=== PATIENT | male | born 1980 ===

== ENCOUNTER 2020-09-02 19:05 | Inpatient (IN) | payer OTHER ==
--- NOTE | 2020-09-02 20:24 | Emergency Department Report ---
Blank Doc - Documentation Documentation: 39-year-old male that presents with abdominal pain with diarrhea and stated has bright red blood in stool x 2 weeks. 1- This initial assessment/diagnostic orders/clinical plan/ treatment(s) is/are subject to change based on pt's health status, clinical progression and re-asses sment by fellow clinical providers in the ED. Further treatment and workup at subsequent clinical provers discretion. Patient/guardians urged not to elope from ED as their condition may be serious if not clinically assessed and managed. 2-labs 3-UA
[2020-09-02 20:47] LABS: Basophils % (Auto) 0.5 % (0.0-1.8); Eosinophils # (Auto) 0.1 K/mm3 (0.0-0.4); Eosinophils % (Auto) 0.6 % (0.0-4.3); Hematocrit 43.1 % (35.5-45.6); Hemoglobin 14.7 gm/dl (11.8-15.2); Lymphocytes # (Auto) 1.5 K/mm3 (1.2-5.4); Mean Corpuscular HGB Conc 34 % (32-34); Mean Corpuscular Volume 96 fl (84-94); Monocytes # (Auto) 1.2 K/mm3 (0.0-0.8); Monocytes % (Auto) 14.6 % (0.0-7.3); Platelet Count 359 K/mm3 (140-440)
[2020-09-02 21:11] LABS: Alanine Aminotransferase 14 units/L (7-56); Albumin 4.5 g/dL (3.9-5); BUN/Creatinine Ratio 14; Blood Urea Nitrogen 11 mg/dL (9-20); Calcium 8.9 mg/dL (8.4-10.2); Hemolysis Index 9
--- NOTE | 2020-09-03 00:28 | Emergency Department Report ---
ED Abdominal Pain HPI - General Chief Complaint: Abdominal Pain Stated Complaint: DIARRHEA Time Seen by Provider: 09/02/20 20:21 Source: patient Mode of arrival: Ambulatory Limitations: No Limitations - History of Present Illness Initial Comments: Patient is a 39-year-old male appearance emergency room with complaints of lower abdominal pain and diarrhea and blood in his diarrhea. Patient states this started 2 weeks ago. Patient states that his symptoms are worsening. Patient states approximately 6 days ago he was seen at an urgent care and given Lomotil, Pepcid, sucralfate nothing has helped his symptoms. Patient states his pain is worsened. Patient states his pain is a 10 out of 10. Patient states that the blood in his stool is a large amount of bright red blood. Patient denies melena. Patient denies fever and chills. Patient denies recent travel. Patient denies recent international travel. Patient denies exposure to the novel coronavirus. Patient denies sick contacts. Patient denies fever and chills. Patient denies cough. Patient denies loss of smell.. Patient denies coming in contact with anybody with symptoms of the novel coronavirus. Complaint: abdominal pain -: Sudden Location: LLQ, RLQ Radiation: none Migration to: no migration Severity: severe Severity scale (0 -10): 10 Quality: stabbing Consistency: constant Improves With: rest Worsens With: movement Associated Symptoms: diarrhea, hematochezia. denies: nausea, vomiting, fever, chills, constipation, dysuria, hematemesis, melena, hematuria, anorexia - Related Data Allergies Allergy/AdvReac Type Severity Reaction Status Date / Time No Known Allergies Allergy Verified 09/03/20 02:19 ED Review of Systems ROS: Stated complaint: DIARRHEA Other details as noted in HPI Constitutional: denies: chills, fever Eyes: denies: eye pain, eye discharge, vision change ENT: denies: ear pain, throat pain Respiratory: denies: cough, shortness of breath, wheezing Cardiovascular: denies: chest pain, palpitations Endocrine: no symptoms reported Gastrointestinal: abdominal pain, diarrhea, hematochezia. denies: nausea, vomiting, constipation, hematemesis, melena Genitourinary: denies: urgency, dysuria Musculoskeletal: denies: back pain, joint swelling, arthralgia Skin: denies: rash, lesions Neurological: denies: headache, weakness, paresthesias Psychiatric: denies: anxiety, depression Hematological/Lymphatic: denies: easy bleeding, easy bruising ED Past Medical Hx - Past Medical History Previous Medical History?: No - Surgical History Past Surgical History?: No - Family History Family history: no significant - Social History Smoking Status: Never Smoker Substance Use Type: None ED Physical Exam - General Limitations: No Limitations General appearance: alert, in no apparent distress - Head Head exam: Present: atraumatic, normocephalic - Eye Eye exam: Present: normal appearance - ENT ENT exam: Present: mucous membranes moist - Neck Neck exam: Present: normal inspection - Respiratory Respiratory exam: Present: normal lung sounds bilaterally. Absent: respiratory distress - Cardiovascular Cardiovascular Exam: Present: regular rate, normal rhythm. Absent: systolic murmur, diastolic murmur, rubs, gallop - GI/Abdominal GI/Abdominal exam: Present: soft, tenderness (Bilateral lower quadrant tenderness), normal bowel sounds - Rectal Rectal exam: Present: normal inspection, normal rectal tone, heme (+) stool, bloody stool. Absent: black stool - Extremities Exam Extremities exam: Present: normal inspection - Back Exam Back exam: Present: normal inspection - Neurological Exam Neurological exam: Present: alert, oriented X3 - Psychiatric Psychiatric exam: Present: normal affect, normal mood - Skin Skin exam: Present: warm, dry, intact, normal color. Absent: rash ED Course Vital Signs 09/02/20 09/03/20 19:35 02:19 Temperature 98.4 F 97.7 F Pulse Rate 75 75 Respiratory 18 18 Rate Blood Pressure 127/84 Blood Pressure 126/67 [Left] O2 Sat by Pulse 94 99 Oximetry - Reevaluation(s) Reevaluation #1: I discussed all results with patient. I discussed plan of care with patient. Patient agrees with plan of care and admission. Patient to be admitted to the hospitalist service. 09/03/20 01:48 - Consultations Consultation #1: Gastroenterology consulted. 09/03/20 01:47 Consultation #2: General surgery paged 09/03/20 01:51 I discussed case with Dr. Beckham, general surgery. Dr. Beckham wants the patient be admitted and she will see the patient in the morning. 09/03/20 02:07 Consultation #3: Hospitalist consulted for admission. Hospitalist to admit patient. 09/03/20 01:51 ED Medical Decision Making - Lab Data Result diagrams: 09/02/20 20:26 09/02/20 20:26 - Radiology Data Radiology results: report reviewed CT ABDOMEN AND PELVIS WITH CONTRAST INDICATION: Pt states lower abdominal pain with bloody diarrhea CONTRAST: 100 cc Omnipaque 300 IV COMPARISON: None available. All CT scans at this location are performed using CT dose reduction for ALARA by means of automated exposure control. FINDINGS: Lung bases are clear. No pneumoperitoneum is seen. No free fluid is noted. Gallbladder and bile ducts appear within normal limits. No urinary obstructive changes are seen. Left renal cyst is noted. No other masses are seen. No lymphadenopathy is noted. No evidence of bowel obstruction is seen. Appendix measures 6 mm at the upper end of the normal range without surrounding inflammation. The colon from the cecum through at least the descending colon shows mild wall edema of concern for colitis. This is most prominent in the right colon. I do not see significant surrounding inflammation however. No obvious complication is seen. There may be mild rectosigmoid wall thickening as well. IMPRESSION: Pancolitis without obvious complication - Medical Decision Making Patient is a 39-year-old male that presents emergency room complaints of lower abdominal pain and rectal bleeding. Patient also complained of diarrhea. Patient for 2 weeks. Patient was seen in urgent care and no improvement with treatment. Patient had labs done which were essentially unremarkable. Patient had a guaiac done which was positive for bright red blood and was Hemoccult positive. CT scan was done which shows pancolitis. The inflammation is close to the appendix but the appendix is normal. Due to the appendiceal findings on CT scan, general surgery was consulted. Due to the colitis, gastroenterology was consulted. Patient given IV antibiotics and IV fluids. Patient admitted to the hospital service for further evaluation treatment. - Differential Diagnosis Colitis,gastroenteritis, diverticulitis, bright red blood per rectum Critical Care Time: Yes Critical care time in (mins) excluding proc time.: 35 Critical care attestation.: If time is entered above; I have spent that time in minutes in the direct care of this critically ill patient, excluding procedure time. Critical Care Time: 35 minutes ED Disposition Clinical Impression: Colitis, BRBPR (bright red blood per rectum) Diarrhea Qualifiers: Diarrhea type: unspecified type Qualified Code(s): R19.7 - Diarrhea, unspecified Abdominal pain Qualifiers: Abdominal location: lower abdomen, unspecified Qualified Code(s): R10.30 - Lower abdominal pain, unspecified Disposition: 09 OP ADMIT IP TO THIS HOSP Is pt being admited?: Yes Does the pt Need Aspirin: No Condition: Critical Time of Disposition: 01:50
--- NOTE | 2020-09-03 01:36 | Cat Scan Report ---
CT ABDOMEN AND PELVIS WITH CONTRAST INDICATION: Pt states lower abdominal pain with bloody diarrhea CONTRAST: 100 cc Omnipaque 300 IV COMPARISON: None available. All CT scans at this location are performed using CT dose reduction for ALARA by means of automated e xposure control. FINDINGS: Lung bases are clear. No pneumoperitoneum is seen. No free fluid is noted. Gallbladder and bile ducts appear within normal limits. No urinary obstructive changes are seen. Left renal cyst is n oted. No other masses are seen. No lymphadenopathy is noted. No evidence of bowel obstruction is seen. Appendix measures 6 mm at the upper end of the normal range without surrounding inflammation. The colon from the cecum through at least the descending colon misbah ws mild wall edema of concern for colitis. This is most prominent in the right colon. I do not see si gnificant surrounding inflammation however. No obvious complication is seen. There may be mild rectos igmoid wall thickening as well. IMPRESSION: Pancolitis without obvious complication Signer Name: Waqar Pierre MD Signed: 09/03/2020 1:32 AM Workstation Name: [id number]
[2020-09-03] MEDS ORDERED: PIPERACIL/TAZOBACTA 4.5/NS 100 4.5 GM/100 ML VIAL IV ONE (01:48)
[2020-09-03] MEDS ORDERED: SODIUM CHLORIDE 0.9% 1000 ML 1,000 ML IV ONE ×2 (01:49)
--- NOTE | 2020-09-03 02:20 | History and Physical Report ---
History of Present Illness Date of examination: 09/03/20 Date of admission: 09/03/20 Chief complaint: Bloody diarrhea Abdominal cramp/pain History of present illness: Patient is a 39-year-old male appearance emergency room with complaints of lower abdominal pain and diarrhea and blood in his diarrhea. Patient states this started 2 weeks ago. Patient states that his symptoms are worsening. Patient states approximately 6 days ago he was seen at an urgent care and given Lomotil, Pepcid, sucralfate nothing has helped his symptoms. Patient states his pain is worsened. Patient states his pain is a 10 out of 10. Patient states that the blood in his stool is a large amount of bright red blood. Patient denies melena. Patient denies fever and chills. Patient is seen in ED at bedside. He reports abdominal pain of 7/10. He said his pain is ongoing for about 2 weeks now He reports a bloody loose stool. He said he wants to the clinic and he was given a pepcid and Carafate without any help. ED work-up shows WBC of 8.4, hemoglobin of 14.7, sodium 140 potassium is 3.8, creatinine 0.8, glucose serum 94 CT of the abdomen done and it showed that the colon from the cecum through at least the descending colon shows mild wall edema of concern for colitis. This is most prominent in the right colon. I do not see significant surrounding in flammation however. No obvious complication is seen. There may be mild rectosigmoid wall thickening as well. legal support manager and general surgeon consulted. Patient is started on Proton ix drip. Patient denies alcohol use, admits same tobacco use and marijuana use sometimes. Patient denies chest pain, shortness of breath, nause and vomiting. Past History Past Medical History: No medical history Past Surgical History: No surgical history Social history: lives with family, smoking Family history: no significant family history Medications and Allergies Allergies Allergy/AdvReac Type Severity Reaction Status Date / Time No Known Allergies Allergy Verified 09/03/20 02:19 Active Meds: Active Medications Piperacillin Sod/Tazobactam Sod (Zosyn/Ns 4.5gm/100ml) 4.5 gm in 100 mls @ 200 mls/hr IV ONCE ONE; Protocol Stop: 09/03/20 02:17 Sodium Chloride (Nacl 0.9% 1000 Ml) 1,000 mls @ 999 mls/hr IV BOLUS ONE Stop: 09/03/20 02:49 Sodium Chloride (Nacl 0.9% 1000 Ml) 1,000 mls @ 250 mls/hr IV ONCE ONE Stop: 09/03/20 05:48 Pantoprazole Sodium 80 mg/ (Sodium Chloride) 100 mls @ 10 mls/hr IV DAILY SHWETHA Ondansetron HCl (Ondansetron 4 Mg/2 Ml Inj) 4 mg IV Q6HR PRN PRN Reason: Indigestion Review of Systems Constitutional: other (abdominal pain) Ears, nose, mouth and throat: no epistaxis Cardiovascular: no rapid/irregular heart beat Respiratory: no cough Gastrointestinal: abdominal pain, change in bowel habits, melena, heartburn, indigestion Genitourinary Male: no dysuria Musculoskeletal: no neck stiffness Integumentary: no rash, no pruritis Neurological: no head injury Endocrine: no polydipsia Hematologic/Lymphatic: no easy bruising, no easy bleeding Allergic/Immunologic: no urticaria, no allergic rhinitis Exam - Constitutional Vitals: Temp Pulse Resp BP Pulse Ox 98.4 F 75 18 127/84 94 09/02/20 19:35 09/02/20 19:35 09/02/20 19:35 09/02/20 19:35 09/02/20 19:35 General appearance: Present: mild distress - EENT Eyes: Present: PERRL ENT: hearing intact, clear oral mucosa - Neck Neck: Present: supple, normal ROM - Respiratory Respiratory effort: normal Respiratory: bilateral: CTA - Cardiovascular Heart rate: 75 Heart Sounds: Present: S1 & S2. Absent: rub, click - Extremities Extremities: pulses symmetrical, No edema Peripheral Pulses: within normal limits - Abdominal General gastrointestinal: Present: soft, tender, normal bowel sounds Male genitourinary: Present: normal - Integumentary Integumentary: Present: clear, warm, dry - Musculoskeletal Musculoskeletal: gait normal, strength equal bilaterally - Psychiatric Psychiatric: appropriate mood/affect, intact judgment & insight, memory intact, cooperative - Neurologic Neurologic: CNII-XII intact, moves all extremities - Allied Health Allied health notes reviewed: nursing Results - Labs CBC & Chem 7: 09/02/20 20:26 09/02/20 20:26 Labs: Abnormal lab results 09/02/20 Range/Units 20:26 MCV 96 H (84-94) fl MCH 33 H (28-32) pg RDW 13.0 L (13.2-15.2) % [place] % (Auto) 14.6 H (0.0-7.3) % [place] # (Auto) 1.2 H (0.0-0.8) K/mm3 Assessment and Plan - Patient Problems (1) Colitis Current Visit: Yes Status: Acute Plan to address problem: Patient came with complaint of abdominal pain CT of the abdomen is done-patient has colitis GI is consulted follow-up with recommendation Empiric antibiotic with Zosyn (2) Abdominal pain Current Visit: Yes Status: Acute Qualifiers: Abdominal location: lower abdomen, unspecified Qualified Code(s): R10.30 - Lower abdominal pain, unspecified Plan to address problem: Abdominal pain secondary to colitis Pain management as needed Protonix drip (3) BRBPR (bright red blood per rectum) Current Visit: Yes Status: Acute Plan to address problem: Continue Protonix drip GI is consulted for possible EGD/colonoscopy Monitor hemoglobin, patient hemoglobin in ED is 14.7 (4) Diarrhea Current Visit: Yes Status: Acute Qualifiers: Diarrhea type: unspecified type Qualified Code(s): R19.7 - Diarrhea, unspecified Plan to address problem: Antidiarrhea medication as needed Keep patient n.p.o. 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 (6) DVT prophylaxis Current Visit: Yes Status: Acute Plan to address problem: SCD
[2020-09-03 02:58] LABS: Bilirubin,Urine NEG (Negative); Blood,Urine SM (Negative); Color,Urine Straw (Yellow); Protein,Urine <15 mg/dL mg/dL (Negative); RBC,Urine < 1.0 /HPF (0.0-6.0); Urobilinogen,Urine < 2.0 mg/dL (<2.0); WBC,Urine < 1.0 /HPF (0.0-6.0)
[2020-09-03] MEDS ORDERED: oxyCODONE /ACETAMINOPHEN 5-325MG TAB PO PRN (03:53)
[2020-09-03] MEDS: MORPHINE 2 MG/1 ML INJ IV PRN (04:10)
[2020-09-03] MEDS: D5W/0.9% NACL 1,000 ML IV SCH ×2 (04:13→15:37)
--- NOTE | 2020-09-03 10:23 | Progress Note ---
Assessment and Plan Assessment and plan: Colitis Patient came with complaint of abdominal pain CT of the abdomen is done-patient has colitis GI is consulted follow-up with recommendation Empiric antibiotic with Zosyn Levaquin added to regimen Check stool culture and stool WBCs Abdominal pain Abdominal pain secondary to colitis Pain management as needed Protonix drip BRBPR (bright red blood per rectum) Continue Protonix drip GI is consulted for possible EGD/colonoscopy Monitor hemoglobin, patient hemoglobin in ED is 14.7 Diarrhea Antidiarrhea medication as needed Keep patient n.p.o. 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 DVT prophylaxis SCD History Interval history: Patient reports 4 diarrheal stools this morning. Hospitalist Physical - Constitutional Vitals: Temp Pulse Resp BP Pulse Ox 97.6 F 78 18 139/83 99 09/03/20 07:42 09/03/20 07:42 09/03/20 07:42 09/03/20 07:42 09/03/20 07:42 General appearance: Present: mild distress - EENT Eyes: Present: PERRL, EOM intact ENT: hearing intact, clear oral mucosa, dentition normal - Neck Neck: Present: supple, normal ROM - Respiratory Respiratory effort: normal Respiratory: bilateral: CTA - Cardiovascular Rhythm: regular Heart Sounds: Present: S1 & S2. Absent: gallop, rub - Extremities Extremities: no ischemia, No edema, Full ROM - Abdominal General gastrointestinal: soft, non-tender, non-distended, normal bowel sounds - Integumentary Integumentary: Present: clear, warm, dry - Neurologic Neurologic: CNII-XII intact, moves all extremities Results - Labs CBC & Chem 7: 09/02/20 20:26 09/02/20 20:26 Labs: Laboratory Last Values WBC 8.4 K/mm3 (4.5-11.0) 09/02/20 20: RBC 4.50 M/mm3 (3.65-5.03) 09/02/20 20:26 Hgb 14.7 gm/dl (11.8-15.2) 09/02/20 20: Hct 43.1 % (35.5-45.6) 09/02/20 20: MCV 96 fl (84-94) H 09/02/20 20: MCH 33 pg (28-32) H 09/02/20 20: MCHC 34 % (32-34) 09/02/20 20: RDW 13.0 % (13.2-15.2) L 09/02/20 20: Plt Count 359 K/mm3 (140-440) 09/02/20 20: Lymph % (Auto) 18.0 % (13.4-35.0) 09/02/20 20: [place] % (Auto) 14.6 % (0.0-7.3) H 09/02/20 20: Eos % (Auto) 0.6 % (0.0-4.3) 09/02/20: Baso % (Auto) 0.5 % (0.0-1.8) 09/02/20 20: Lymph # (Auto) 1.5 K/mm3 (1.2-5.4) 09/02/20 20: [place] # (Auto) 1.2 K/mm3 (0.0-0.8) H 09/02/20 20: Eos # (Auto) 0.1 K/mm3 (0.0-0.4) 09/02/20: Baso # (Auto) 0.0 K/mm3 (0.0-0.1) 09/02/20 20: Seg Neutrophils % 66.3 % (40.0-70.0) 09/02/20 20: Seg Neutrophils # 5.6 K/mm3 (1.8-7.7) 09/02/20 20: Sodium 140 mmol/L (137-145) 09/02/20 20: Potassium 3.8 mmol/L (3.6-5.0) 09/02/20: Chloride 102.7 mmol/L (98-107) 09/02/20 20: Carbon Dioxide 26 mmol/L (22-30) 09/02/20: Anion Gap 15 mmol/L 09/02/20 20: BUN 11 mg/dL (9-20) 09/02/20 20: Creatinine 0.8 mg/dL (0.8-1.3) 09/02/20 20: Estimated GFR > 60 ml/min 01/20/21 20:26 BUN/Creatinine Ratio 14 % 09/02/20 20:26 Glucose 94 mg/dL (75-100) 09/02/20 20: Calcium 8.9 mg/dL (8.4-10.2) 09/02/20 20: Total Bilirubin 0.30 mg/dL (0.1-1.2) 09/02/20 20:26 AST 17 units/L (5-40) 09/02/20 20: ALT 14 units/L (7-56) 09/02/20 20: Alkaline Phosphatase 62 units/L (35-129) 09/02/20 20: Total Protein 6.8 g/dL (6.3-8.2) 09/02/20 20: Albumin 4.5 g/dL (3.9-5) 09/02/20 20: Albumin/Globulin Ratio 2.0 % 09/02/20 20: Lipase 17 units/L (13-60) 09/02/20 20:26 Urine Color Straw (Yellow) 09/03/20 02:27 Urine Turbidity Clear (Clear) 09/03/20 02:27 Urine pH 6.0 (5.0-7.0) 09/03/20 02:27 Ur Specific [place] 1.003 (1.003-1.030) 09/03/20 02:27 Urine Protein <15 mg/dl mg/dL (Negative) 09/03/20 02:27 Urine Glucose (UA) Neg mg/dL (Negative) 09/03/20 02:27 Urine Ketones Neg mg/dL (Negative) 09/03/20 02:27 Urine Blood Sm (Negative) 09/03/20 02:27 Urine Nitrite Neg (Negative) 09/03/20 02:27 Urine Bilirubin Neg (Negative) 09/03/20 02:27 Urine Urobilinogen < 2.0 mg/dL (<2.0) 09/03/20 02:27 Ur Leukocyte Esterase Neg (Negative) 09/03/20 02:27 Urine WBC (Auto) < 1.0 /HPF (0.0-6.0) 09/03/20 02:27 Urine RBC (Auto) < 1.0 /HPF (0.0-6.0) 09/03/20 02:27 Microbiology: Microbiology 09/02/20 20:22 Stool Stool Occult Blood (GARRY) - Final Breaux/IV: Voiding Method Toilet IV Catheter Type [Right Peripheral IV Antecubital] Active Medications - Current Medications Current Medications: Generic Name Dose Route Start Last Admin Trade Name Freq PRN Reason Stop Dose Admin Pantoprazole Sodium 80 mg/ 100 mls @ 10 mls/hr 09/03/20 03:00 Sodium Chloride IV DIRECT SHWETHA 8 MG/HR Dextrose/Sodium Chloride 1,000 mls @ 75 mls/hr 09/03/20 03:00 09/03/20 04:13 D5ns IV 75 mls/hr DIRECT SHWETHA Administration Piperacillin Sod/Tazobactam Sod 4.5 gm in 100 mls @ 200 mls/hr 09/03/20 10:00 Zosyn/Ns 4.5gm/100ml IV Q8H SHWETHA Protocol Levofloxacin/Dextrose 500 mg in 100 mls @ 100 mls/hr 09/03/20 11:00 Levaquin 500mg/100ml IV Q24H SHWETHA Protocol Morphine Sulfate 2 mg 09/03/20 03:51 09/03/20 04:10 Morphine 2 Mg/1 Ml Inj IV 2 mg Q6H PRN Administration Pain, Moderate (4-6) Ondansetron HCl 4 mg 09/03/20 02:11 Ondansetron 4 Mg/2 Ml Inj IV Q6HR PRN Indigestion Oxycodone/Acetaminophen 1 tab 09/03/20 03:53 Oxycodone /Acetaminophen 5-325mg Tab PO Q8H PRN Pain, Moderate (4-6)
--- NOTE | 2020-09-03 11:01 | Consultation ---
History of Present Illness Consult date: 09/03/20 Reason for consult: abdominal pain - History of present illness History of present illness: 39 year old male presented to ED with a two week hx of worsening abdominal pain with bloody stools. He says he had a similar episode several years ago that was not as severe, and resolved on its own. He also has a hx of GI problems for [facility] he has seen at least two seasoning mixer who have done two EGDs in the past. He has never had a colonoscopy and denies any knowledge of familial history of irritable bowel disease. He had a CT scan that showed crespo colitis, as well as an appendix that was inflamed at borderline at 6mm. Past History Past Medical History: No medical history Past Surgical History: No surgical history Social history: lives with family, smoking Family history: no significant family history Medications and Allergies Allergies Allergy/AdvReac Type Severity Reaction Status Date / Time No Known Allergies Allergy Verified 09/03/20 02:19 Active Meds: Active Medications Pantoprazole Sodium 80 mg/ (Sodium Chloride) 100 mls @ 10 mls/hr IV DIRECT SHWETHA Dextrose/Sodium Chloride (D5ns) 1,000 mls @ 75 mls/hr IV DIRECT SHWETHA Last Admin: 09/03/20 04:13 Dose: 75 mls/hr Documented by: Piperacillin Sod/Tazobactam Sod (Zosyn/Ns 4.5gm/100ml) 4.5 gm in 100 mls @ 200 mls/hr IV Q8H SHWETHA; Protocol Levofloxacin/Dextrose (Levaquin 500mg/100ml) 500 mg in 100 mls @ 100 mls/hr IV Q24H SHWETHA; Protocol Morphine Sulfate (Morphine 2 Mg/1 Ml Inj) 2 mg IV Q6H PRN PRN Reason: Pain, Moderate (4-6) Last Admin: 09/03/20 04:10 Dose: 2 mg Documented by: Ondansetron HCl (Ondansetron 4 Mg/2 Ml Inj) 4 mg IV Q6HR PRN PRN Reason: Indigestion Oxycodone/Acetaminophen (Oxycodone /Acetaminophen 5-325mg Tab) 1 tab PO Q8H PRN PRN Reason: Pain, Moderate (4-6) Review of Systems - Constitutional no weight loss, no weight gain, no weakness - Cardiovascular no chest pain - Respiratory no cough, no shortness of breath - Gastrointestinal abdominal pain, diarrhea, melena - Genitourinary no dysuria Exam Vital Signs Temp Pulse Resp BP Pulse Ox 98.4 F 75 18 127/84 94 09/02/20 19:35 09/02/20 19:35 09/02/20 19:35 09/02/20 19:35 09/02/20 19:35 - General physical appearance Positive: well developed, well nourished, no distress, no pain - Respiratory Positive: normal expansion, normal respiratory effort - Cardiovascular Heart Sounds: Present: S1 & S2 - Extremities Extremities: no ischemia - Abdomen Abdomen: Present: soft, other (tender to deep palpation). Absent: distended, rebound, guarding, rigid, surgical scars Results - Labs 09/02/20 20:26 09/02/20 20:26 Abnormal lab results 09/02/20 Range/Units 20:26 MCV 96 H (84-94) fl MCH 33 H (28-32) pg RDW 13.0 L (13.2-15.2) % [place] % (Auto) 14.6 H (0.0-7.3) % [place] # (Auto) 1.2 H (0.0-0.8) K/mm3 Diabetes panel 09/02/20 Range/Units 20:26 Sodium 140 (137-145) mmol/L Potassium 3.8 (3.6-5.0) mmol/L Chloride 102.7 (98-107) mmol/L Carbon Dioxide 26 (22-30) mmol/L BUN 11 (9-20) mg/dL Creatinine 0.8 (0.8-1.3) mg/dL Glucose 94 (75-100) mg/dL Calcium 8.9 (8.4-10.2) mg/dL AST 17 (5-40) units/L ALT 14 (7-56) units/L Alkaline Phosphatase 62 (35-129) units/L Total Protein 6.8 (6.3-8.2) g/dL Albumin 4.5 (3.9-5) g/dL Calcium panel 09/02/20 Range/Units 20:26 Calcium 8.9 (8.4-10.2) mg/dL Albumin 4.5 (3.9-5) g/dL Pituitary panel 09/02/20 Range/Units 20:26 Sodium 140 (137-145) mmol/L Potassium 3.8 (3.6-5.0) mmol/L Chloride 102.7 (98-107) mmol/L Carbon Dioxide 26 (22-30) mmol/L BUN 11 (9-20) mg/dL Creatinine 0.8 (0.8-1.3) mg/dL Glucose 94 (75-100) mg/dL Calcium 8.9 (8.4-10.2) mg/dL Adrenal panel 09/02/20 Range/Units 20:26 Sodium 140 (137-145) mmol/L Potassium 3.8 (3.6-5.0) mmol/L Chloride 102.7 (98-107) mmol/L Carbon Dioxide 26 (22-30) mmol/L BUN 11 (9-20) mg/dL Creatinine 0.8 (0.8-1.3) mg/dL Glucose 94 (75-100) mg/dL Calcium 8.9 (8.4-10.2) mg/dL Total Bilirubin 0.30 (0.1-1.2) mg/dL AST 17 (5-40) units/L ALT 14 (7-56) units/L Alkaline Phosphatase 62 (35-129) units/L Total Protein 6.8 (6.3-8.2) g/dL Albumin 4.5 (3.9-5) g/dL - Imaging CT scan - abdomen: report reviewed CT scan - chest: image reviewed CT scan - pelvis: report reviewed, image reviewed Assessment and Plan 39 year old male with pancolitis. Afebrile, stable, no leukocytosis. Appendiceal inflammation likely associated with colitis and no surgical intervention indicated at this time. Agree with GI evaluation, especially given his previous hx of prior episodes and other GI complaints and work ups. Pt may have IBD that may benefit from medical management and follow up. Continue abx.
[2020-09-03] MEDS: PIPERACIL/TAZOBACTA 4.5/NS 100 4.5 GM/100 ML VIAL IV SCH ×2 (11:08→18:25)
[2020-09-03] MEDS: PANTOPRAZOLE 80 MG in SODIUM CHLORIDE 0.9% 100 ML IV SCH ×2 (11:08→19:20)
--- NOTE | 2020-09-03 13:10 | Event Note ---
Date: 09/03/20 - full consult dictated - pt now with bloody diarrhea w/ no recent prior symptoms - infectious vs IBD vs other - IBD serologies, CRP - await stool labs - consider steroids based on progress and with stool results - will follow
--- NOTE | 2020-09-03 14:30 | Consultation ---
REFERRING PHYSICIAN: Gurmeet Pierre MD INDICATION: 1. Abdominal pain. 2. Colitis. HISTORY OF PRESENT ILLNESS: The patient is a 39-year-old male with no significant past medical history being seen for abdominal pain and bloody diarrhea. The patient reports an episode of 8 years ago, he had some bloody diarrhea, which resolved after 4-5 days. The patient reports he had been eating a lot over the holiday weekend with plans to cut back. The patient reports approximately 10 days of bloody bowel movements with lower abdominal pain and cramping. The patient reports of 10 bloody bowel movements per day. He reports no nausea, vomiting or hematemesis. The patient reports prior to this, he was feeling fine. Denies any weight loss. Denies any other specific complaints. The patient subsequently came to Emergency Room where a CT scan showed pancolitis. He was admitted and GI consulted. No other specific complaints. PAST MEDICAL HISTORY: Negative. MEDICATIONS: Reviewed and updated in the chart. ALLERGIES: No known drug allergies. SOCIAL HISTORY: Denies alcohol, tobacco or IV drug abuse. FAMILY HISTORY: Negative for colon cancer. REVIEW OF SYSTEMS: GENERAL: Reports some weakness. HEENT: No visual complaints or tinnitus. PULMONARY: No shortness of breath. No cough. No chest pain. GASTROINTESTINAL: Reports abdominal pain and bloody diarrhea. All points of 13-point review of systems otherwise negative. PHYSICAL EXAMINATION: VITAL SIGNS: Temperature of 97.6, pulse 78, respirations 18, blood pressure 139/83. GENERAL: Fairly nourished male in no acute distress. HEENT: Pupils equal, round and reactive. PULMONARY: Clear to auscultation bilaterally. CARDIOVASCULAR: Regular rate and rhythm. Normal S1 and S2. ABDOMEN: Positive bowel sounds, soft. SKIN: No obvious rashes. LABORATORY DATA: Pertinent for white count of 8.4, hemoglobin and hematocrit of 14.7 and 43.1, platelet count of 359. Chem-[address] scan showed pancolitis, infection versus inflammatory bowel disease. ASSESSMENT AND PLAN: A 39-year-old male who reports no recent complaints of bloody diarrhea or lower abdominal pain. He reports he has been eating a lot over the holidays and now with approximately 10-12 days of bloody bowel movements approximately 10 per day. He reports no fevers or chills. He does report some abdominal pain. CT scan showed pancolitis. The patient again reports no recent symptoms, which is not the usual course of inflammatory bowel disease, but still possible. Differential diagnosis including infectious versus inflammatory bowel disease versus other. PLAN: 1. Review CT scan. 2. Agree with antibiotics with Levaquin and Flagyl. 3. Stool cultures. 4. We will check IBD serologies as well as follow CRP. 5. If negative stool sample and no signs of improvement, we will consider steroids at that time. 6. No plans for colonoscopy at this time. 7. When pain improve, we will start clear liquid diet. 8. We will follow. JOB# [id number] CAB/NTS
[2020-09-03] MEDS ORDERED: ACETAMINOPHEN 325 MG/10.15 ML ORAL LIQD UNIT DOSE FEEDTUBE PRN (15:42)
[2020-09-03] MEDS: ONDANSETRON 4 MG/2 ML INJ IV PRN (22:50)
[2020-09-04] MEDS: PIPERACIL/TAZOBACTA 4.5/NS 100 4.5 GM/100 ML VIAL IV SCH ×2 (03:57→10:27)
[2020-09-04 06:23] LABS: Basophils # (Auto) 0.1 K/mm3 (0.0-0.1); Basophils % (Auto) 0.7 % (0.0-1.8); Eosinophils # (Auto) 0.1 K/mm3 (0.0-0.4); Eosinophils % (Auto) 1.3 % (0.0-4.3); Hematocrit 42.9 % (35.5-45.6); Hemoglobin 14.8 gm/dl (11.8-15.2); Lymphocytes # (Auto) 1.1 K/mm3 (1.2-5.4); Lymphocytes % (Auto) 13.1 % (13.4-35.0); Mean Corpuscular HGB Conc 34 % (32-34); Mean Corpuscular Volume 95 fl (84-94); Monocytes # (Auto) 1.1 K/mm3 (0.0-0.8); Monocytes % (Auto) 13.1 % (0.0-7.3); Platelet Count 366 K/mm3 (140-440); Red Blood Count 4.52 M/mm3 (3.65-5.03); Red Cell Distribution Width 13.1 % (13.2-15.2)
[2020-09-04] MEDS: D5W/0.9% NACL 1,000 ML IV SCH (06:28)
[2020-09-04] MEDS: PANTOPRAZOLE 80 MG in SODIUM CHLORIDE 0.9% 100 ML IV SCH (06:28)
[2020-09-04] MEDS: MORPHINE 2 MG/1 ML INJ IV PRN ×2 (06:29→12:25)
[2020-09-04] MEDS: ONDANSETRON 4 MG/2 ML INJ IV PRN (06:30)
[2020-09-04 06:35] LABS: Alanine Aminotransferase 12 units/L (7-56); BUN/Creatinine Ratio 9; Blood Urea Nitrogen 8 mg/dL (9-20); Calcium 8.7 mg/dL (8.4-10.2); Hemolysis Index 4
--- NOTE | 2020-09-04 13:09 | Progress Note ---
Assessment and Plan Assessment and plan: Colitis Patient came with complaint of abdominal pain CT of the abdomen is done-patient has colitis GI is consulted follow-up with recommendation Empiric antibiotic with Zosyn Levaquin added to regimen Check stool culture and stool WBCs Abdominal pain Abdominal pain secondary to colitis Pain management as needed Protonix drip BRBPR (bright red blood per rectum) Continue Protonix drip GI is consulted for possible EGD/colonoscopy Monitor hemoglobin, patient hemoglobin in ED is 14.7 Diarrhea Antidiarrhea medication as needed Keep patient n.p.o. 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 DVT prophylaxis SCD 09/04. Await stool studies. Continue IV antibiotics. Await GI plans for possible EGD/colonoscopy. History Interval history: Patient reports 10 diarrheal stools over the past 24 hours Hospitalist Physical - Constitutional Vitals: Temp Pulse Resp BP Pulse Ox 98.0 F 69 20 128/76 97 09/04/20 11:48 09/04/20 11:48 09/04/20 12:25 09/04/20 11:48 09/04/20 11:48 General appearance: Present: no acute distress - EENT Eyes: Present: PERRL, EOM intact ENT: hearing intact, clear oral mucosa, dentition normal - Neck Neck: Present: supple, normal ROM - Respiratory Respiratory effort: normal Respiratory: bilateral: CTA - Cardiovascular Rhythm: regular Heart Sounds: Present: S1 & S2. Absent: gallop, rub - Extremities Extremities: no ischemia, No edema, Full ROM - Abdominal General gastrointestinal: soft, non-tender, non-distended, normal bowel sounds - Integumentary Integumentary: Present: clear, warm, dry - Neurologic Neurologic: CNII-XII intact, moves all extremities Results - Labs CBC & Chem 7: 09/04/20 05:44 09/04/20 05:44 Labs: Laboratory Last Values WBC 8.4 K/mm3 (4.5-11.0) 09/04/20 05:44 RBC 4.52 M/mm3 (3.65-5.03) 09/04/20 05:44 Hgb 14.8 gm/dl (11.8-15.2) 09/04/20 05:44 Hct 42.9 % (35.5-45.6) 09/04/20 05:44 MCV 95 fl (84-94) H 09/04/20 05:44 MCH 33 pg (28-32) H 09/04/20 05:44 MCHC 34 % (32-34) 09/04/20 05:44 RDW 13.1 % (13.2-15.2) L 09/04/20 05:44 Plt Count 366 K/mm3 (140-440) 09/04/20 05:44 Lymph % (Auto) 13.1 % (13.4-35.0) L 09/04/20 05:44 [place] % (Auto) 13.1 % (0.0-7.3) H 09/04/20 05:44 Eos % (Auto) 1.3 % (0.0-4.3) 09/04/20 05:44 Baso % (Auto) 0.7 % (0.0-1.8) 09/04/20 05:44 Lymph # (Auto) 1.1 K/mm3 (1.2-5.4) L 09/04/20 05:44 [place] # (Auto) 1.1 K/mm3 (0.0-0.8) H 09/04/20 05:44 Eos # (Auto) 0.1 K/mm3 (0.0-0.4) 09/04/20 05:44 Baso # (Auto) 0.1 K/mm3 (0.0-0.1) 09/04/20 05:44 Seg Neutrophils % 71.8 % (40.0-70.0) H 09/04/20 05:44 Seg Neutrophils # 6.0 K/mm3 (1.8-7.7) 09/04/20 05:44 Sodium 140 mmol/L (137-145) 09/04/20 05:44 Potassium 3.8 mmol/L (3.6-5.0) 09/04/20 05:44 Chloride 104.0 mmol/L (98-107) 09/04/20 05:44 Carbon Dioxide 29 mmol/L (22-30) 09/04/20 05:44 Anion Gap 11 mmol/L 09/04/20 05:44 BUN 8 mg/dL (9-20) L 09/04/20 05:44 Creatinine 0.9 mg/dL (0.8-1.3) 09/04/20 05:44 Estimated GFR > 60 ml/min 09/04/20 05:44 BUN/Creatinine Ratio 9 % 09/04/20 05:44 Glucose 88 mg/dL (75-100) 09/04/20 05:44 Calcium 8.7 mg/dL (8.4-10.2) 09/04/20 05:44 Total Bilirubin 0.50 mg/dL (0.1-1.2) 09/04/20 05:44 AST 16 units/L (5-40) 09/04/20 05:44 ALT 12 units/L (7-56) 09/04/20 05:44 Alkaline Phosphatase 58 units/L (35-129) 09/04/20 05:44 C-Reactive Protein 1.30 mg/dL (0.00-1.30) 09/04/20 05:44 Total Protein 6.1 g/dL (6.3-8.2) L 09/04/20 05:44 Albumin 4.0 g/dL (3.9-5) 09/04/20 05:44 Albumin/Globulin Ratio 1.9 % 09/04/20 05:44 Lipase 17 units/L (13-60) 09/02/20 20:26 Urine Color Straw (Yellow) 09/03/20 02:27 Urine Turbidity Clear (Clear) 09/03/20 02:27 Urine pH 6.0 (5.0-7.0) 09/03/20 02:27 Ur Specific [place] 1.003 (1.003-1.030) 09/03/20 02:27 Urine Protein <15 mg/dl mg/dL (Negative) 09/03/20 02:27 Urine Glucose (UA) Neg mg/dL (Negative) 09/03/20 02:27 Urine Ketones Neg mg/dL (Negative) 09/03/20 02:27 Urine Blood Sm (Negative) 09/03/20 02:27 Urine Nitrite Neg (Negative) 09/03/20 02:27 Urine Bilirubin Neg (Negative) 09/03/20 02:27 Urine Urobilinogen < 2.0 mg/dL (<2.0) 09/03/20 02:27 Ur Leukocyte Esterase Neg (Negative) 09/03/20 02:27 Urine WBC (Auto) < 1.0 /HPF (0.0-6.0) 09/03/20 02:27 Urine RBC (Auto) < 1.0 /HPF (0.0-6.0) 09/03/20 02:27 Microbiology: Microbiology 09/03/20 10:20 Stool Stool for WBCs - Final Many Polymorphonuclear Cells Seen 09/02/20 20:22 Stool Stool Occult Blood (GARRY) - Final Breaux/IV: Voiding Method Toilet IV Catheter Type [Left Forearm INT / Saline Lock ] IV Catheter Type [Right Peripheral IV Antecubital] Active Medications - Current Medications Current Medications: Generic Name Dose Route Start Last Admin Trade Name Freq PRN Reason Stop Dose Admin Acetaminophen 650 mg 09/03/20 15:42 09/03/20 16:04 Acetaminophen 325 Mg/10.15 Ml Oral Liqd Unit Dose FEEDTUBE 650 mg Q6H PRN Administration Pain, Mild (1-3) Pantoprazole Sodium 80 mg/ 100 mls @ 10 mls/hr 09/03/20 03:00 09/04/20 06:28 Sodium Chloride IV 09/04/20 15:00 8 mg/hr DIRECT SHWETHA 10 mls/hr Administration 8 MG/HR Dextrose/Sodium Chloride 1,000 mls @ 75 mls/hr 09/03/20 03:00 09/04/20 06:28 D5ns IV 75 mls/hr DIRECT SHWETHA Administration Piperacillin Sod/Tazobactam Sod 4.5 gm in 100 mls @ 200 mls/hr 09/03/20 10:00 09/04/20 10:27 Zosyn/Ns 4.5gm/100ml IV 200 mls/hr Q8H SHWETHA Administration Protocol Levofloxacin/Dextrose 500 mg in 100 mls @ 100 mls/hr 09/03/20 12:00 09/03/20 20:12 Levaquin 500mg/100ml IV Infused Q24H SHWETHA Infusion Protocol Morphine Sulfate 2 mg 09/03/20 03:51 09/04/20 12:25 Morphine 2 Mg/1 Ml Inj IV 2 mg Q6H PRN Administration Pain, Moderate (4-6) Ondansetron HCl 4 mg 09/03/20 02:11 09/04/20 06:30 Ondansetron 4 Mg/2 Ml Inj IV 4 mg Q6HR PRN Administration Indigestion Oxycodone/Acetaminophen 1 tab 09/03/20 03:53 Oxycodone /Acetaminophen 5-325mg Tab PO Q8H PRN Pain, Moderate (4-6) Pantoprazole Sodium 40 mg 09/04/20 22:00 Pantoprazole 40 Mg Inj IV BID SHWETHA
--- NOTE | 2020-09-04 16:41 | Gastroenterology Progress Note ---
Assessment and Plan GI: pt presents w/ 1/2 wks bloody diarrhea, ct colitis, IBD vs infectious vs other - labs stable, CRP normal, other IBD serologies pending - stool labs pending - started clear liquid, advanced based on progress - D/c Zosyn, Flagyl started - will add Questran - no plans for colonoscopy at this time, will plan for as outpt when dc - follow loabs - when diarrhea stable, tolerating po ok to dc - will follow Subjective Date of service: 09/04/20 Interval history: reports mild improvement in pain and diarrhea Objective - Constitutional Vitals: Temp Pulse Resp BP Pulse Ox 98.0 F 69 20 128/76 97 09/04/20 11:48 09/04/20 11:48 09/04/20 12:25 09/04/20 11:48 09/04/20 11:48 General appearance: no acute distress - EENT Eyes: PERRL - Respiratory Respiratory: bilateral: CTA - Cardiovascular Rhythm: regular Heart Sounds: Present: S1 & S2 - Gastrointestinal General gastrointestinal: Present: soft, non-tender, non-distended - Labs CBC & Chem 7: 09/04/20 05:44 09/04/20 05:44 Labs: Laboratory Results - last 24 hr 09/04/20 09/04/20 09/04/20 05:44 05:44 05:44 WBC 8.4 RBC 4.52 Hgb 14.8 Hct 42.9 MCV 95 H MCH 33 H MCHC 34 RDW 13.1 L Plt Count 366 Lymph % (Auto) 13.1 L [place] % (Auto) 13.1 H Eos % (Auto) 1.3 Baso % (Auto) 0.7 Lymph # (Auto) 1.1 L [place] # (Auto) 1.1 H Eos # (Auto) 0.1 Baso # (Auto) 0.1 Seg Neutrophils % 71.8 H Seg Neutrophils # 6.0 Sodium 140 Potassium 3.8 Chloride 104.0 Carbon Dioxide 29 Anion Gap 11 BUN 8 L Creatinine 0.9 Estimated GFR > 60 BUN/Creatinine Ratio 9 Glucose 88 Calcium 8.7 Total Bilirubin 0.50 AST 16 ALT 12 Alkaline Phosphatase 58 C-Reactive Protein 1.30 Total Protein 6.1 L Albumin 4.0 Albumin/Globulin Ratio 1.9
[2020-09-04] MEDS: metroNIDAZOLE/NS 500 MG/100 ML 500 MG/100 ML BAG IV SCH (18:00)
[2020-09-04] MEDS: CHOLESTYRAMINE (WITH SUGAR) 4 GM PACKET PO SCH (21:50)
[2020-09-04] MEDS ORDERED: PANTOPRAZOLE 40 MG INJ IV SCH (22:00)
[2020-09-05] MEDS: metroNIDAZOLE/NS 500 MG/100 ML 500 MG/100 ML BAG IV SCH ×3 (02:00→17:13)
[2020-09-05 06:04] LABS: Basophils % (Auto) 0.6 % (0.0-1.8); Eosinophils # (Auto) 0.1 K/mm3 (0.0-0.4); Eosinophils % (Auto) 1.4 % (0.0-4.3); Hematocrit 44.4 % (35.5-45.6); Hemoglobin 15.4 gm/dl (11.8-15.2); Lymphocytes # (Auto) 1.5 K/mm3 (1.2-5.4); Lymphocytes % (Auto) 17.5 % (13.4-35.0); Mean Corpuscular HGB Conc 35 % (32-34); Mean Corpuscular Volume 96 fl (84-94); Monocytes # (Auto) 1.1 K/mm3 (0.0-0.8); Monocytes % (Auto) 13.1 % (0.0-7.3); Platelet Count 403 K/mm3 (140-440); Red Blood Count 4.65 M/mm3 (3.65-5.03); Red Cell Distribution Width 12.8 % (13.2-15.2)
[2020-09-05 06:26] LABS: BUN/Creatinine Ratio 6; Blood Urea Nitrogen 5 mg/dL (9-20); Calcium 8.9 mg/dL (8.4-10.2); Hemolysis Index 15
--- NOTE | 2020-09-05 08:59 | Progress Note ---
Assessment and Plan Assessment and plan: Colitis Patient came with complaint of abdominal pain CT of the abdomen is done-patient has colitis GI is consulted follow-up with recommendation Empiric antibiotic with Zosyn Levaquin added to regimen Check stool culture and stool WBCs Abdominal pain Abdominal pain secondary to colitis Pain management as needed Protonix drip BRBPR (bright red blood per rectum) Continue Protonix drip GI is consulted for possible EGD/colonoscopy Monitor hemoglobin, patient hemoglobin in ED is 14.7 Diarrhea Antidiarrhea medication as needed Keep patient n.p.o. 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 DVT prophylaxis SCD 09/04. Await stool studies. Continue IV antibiotics. Await GI plans for possible EGD/colonoscopy. 09/05. CRP normal. Await stool studies. Continue clear liquid diet and advance as tolerated. Continue Levaquin and Flagyl. GI added Questran. GI with no plans of colonoscopy at this time and will follow up as an outpatient. History Interval history: No new issues overnight Hospitalist Physical - Constitutional Vitals: Temp Pulse Resp BP Pulse Ox 98.6 F 65 18 113/74 98 09/05/20 05:20 09/05/20 05:20 09/05/20 05:20 09/05/20 05:20 09/05/20 05:20 General appearance: Present: no acute distress - EENT Eyes: Present: PERRL, EOM intact ENT: hearing intact, clear oral mucosa, dentition normal - Neck Neck: Present: supple, normal ROM - Respiratory Respiratory effort: normal Respiratory: bilateral: CTA - Cardiovascular Rhythm: regular Heart Sounds: Present: S1 & S2. Absent: gallop, rub - Extremities Extremities: no ischemia, No edema, Full ROM - Abdominal General gastrointestinal: soft, non-tender, non-distended, normal bowel sounds - Integumentary Integumentary: Present: clear, warm, dry - Neurologic Neurologic: CNII-XII intact, moves all extremities Results - Labs CBC & Chem 7: 09/05/20 05:41 09/05/20 05:41 Labs: Laboratory Last Values WBC 8.5 K/mm3 (4.5-11.0) 09/05/20 05:41 RBC 4.65 M/mm3 (3.65-5.03) 09/05/20 05:41 Hgb 15.4 gm/dl (11.8-15.2) H 09/05/20 05:41 Hct 44.4 % (35.5-45.6) 09/05/20 05:41 MCV 96 fl (84-94) H 09/05/20 05:41 MCH 33 pg (28-32) H 09/05/20 05:41 MCHC 35 % (32-34) H 09/05/20 05:41 RDW 12.8 % (13.2-15.2) L 09/05/20 05:41 Plt Count 403 K/mm3 (140-440) 09/05/20 05:41 Lymph % (Auto) 17.5 % (13.4-35.0) 09/05/20 05:41 [place] % (Auto) 13.1 % (0.0-7.3) H 09/05/20 05:41 Eos % (Auto) 1.4 % (0.0-4.3) 09/05/20 05:41 Baso % (Auto) 0.6 % (0.0-1.8) 09/05/20 05:41 Lymph # (Auto) 1.5 K/mm3 (1.2-5.4) 09/05/20 05:41 [place] # (Auto) 1.1 K/mm3 (0.0-0.8) H 09/05/20 05:41 Eos # (Auto) 0.1 K/mm3 (0.0-0.4) 09/05/20 05:41 Baso # (Auto) 0.0 K/mm3 (0.0-0.1) 09/05/20 05:41 Seg Neutrophils % 67.4 % (40.0-70.0) 09/05/20 05:41 Seg Neutrophils # 5.7 K/mm3 (1.8-7.7) 09/05/20 05:41 Sodium 141 mmol/L (137-145) 09/05/20 05:41 Potassium 3.4 mmol/L (3.6-5.0) L 09/05/20 05:41 Chloride 103.0 mmol/L (98-107) 09/05/20 05:41 Carbon Dioxide 26 mmol/L (22-30) 09/05/20 05:41 Anion Gap 15 mmol/L 09/05/20 05:41 BUN 5 mg/dL (9-20) L 09/05/20 05:41 Creatinine 0.9 mg/dL (0.8-1.3) 09/05/20 05:41 Estimated GFR > 60 ml/min 09/05/20 05:41 BUN/Creatinine Ratio 6 % 09/05/20 05:41 Glucose 93 mg/dL (75-100) 09/05/20 05:41 Calcium 8.9 mg/dL (8.4-10.2) 09/05/20 05:41 Total Bilirubin 0.50 mg/dL (0.1-1.2) 09/04/20 05:44 AST 16 units/L (5-40) 09/04/20 05:44 ALT 12 units/L (7-56) 09/04/20 05:44 Alkaline Phosphatase 58 units/L (35-129) 09/04/20 05:44 C-Reactive Protein 1.30 mg/dL (0.00-1.30) 09/04/20 05:44 Total Protein 6.1 g/dL (6.3-8.2) L 09/04/20 05:44 Albumin 4.0 g/dL (3.9-5) 09/04/20 05:44 Albumin/Globulin Ratio 1.9 % 09/04/20 05:44 Lipase 17 units/L (13-60) 09/02/20 20:26 Urine Color Straw (Yellow) 09/03/20 02:27 Urine Turbidity Clear (Clear) 09/03/20 02:27 Urine pH 6.0 (5.0-7.0) 09/03/20 02:27 Ur Specific [place] 1.003 (1.003-1.030) 09/03/20 02:27 Urine Protein <15 mg/dl mg/dL (Negative) 09/03/20 02:27 Urine Glucose (UA) Neg mg/dL (Negative) 09/03/20 02:27 Urine Ketones Neg mg/dL (Negative) 09/03/20 02:27 Urine Blood Sm (Negative) 09/03/20 02:27 Urine Nitrite Neg (Negative) 09/03/20 02:27 Urine Bilirubin Neg (Negative) 09/03/20 02:27 Urine Urobilinogen < 2.0 mg/dL (<2.0) 09/03/20 02:27 Ur Leukocyte Esterase Neg (Negative) 09/03/20 02:27 Urine WBC (Auto) < 1.0 /HPF (0.0-6.0) 09/03/20 02:27 Urine RBC (Auto) < 1.0 /HPF (0.0-6.0) 09/03/20 02:27 Microbiology: Microbiology 09/03/20 10:20 Stool Stool Culture - Preliminary 09/03/20 10:20 Stool Stool for WBCs - Final Many Polymorphonuclear Cells Seen Breaux/IV: Voiding Method Urinal IV Catheter Type [Left Forearm INT / Saline Lock ] IV Catheter Type [Right Peripheral IV Antecubital] Active Medications - Current Medications Current Medications: Generic Name Dose Route Start Last Admin Trade Name Freq PRN Reason Stop Dose Admin Acetaminophen 650 mg 09/03/20 15:42 09/03/20 16:04 Acetaminophen 325 Mg/10.15 Ml Oral Liqd Unit Dose FEEDTUBE 650 mg Q6H PRN Administration Pain, Mild (1-3) Cholestyramine Resin 4 gm 09/04/20 22:00 09/04/20 21:50 Cholestyramine (With Sugar) 4 Gm Packet PO 4 gm BID SHWETHA Administration Dextrose/Sodium Chloride 1,000 mls @ 75 mls/hr 09/03/20 03:00 09/04/20 06:28 D5ns IV 75 mls/hr DIRECT SHWETHA Administration Levofloxacin/Dextrose 500 mg in 100 mls @ 100 mls/hr 09/03/20 12:00 09/04/20 14:06 Levaquin 500mg/100ml IV 100 mls/hr Q24H SHWETHA Administration Protocol Metronidazole 500 mg in 100 mls @ 100 mls/hr 09/04/20 17:00 09/05/20 02:00 Flagyl 500 Mg/100 Ml IV 100 mls/hr Q8H SHWETHA Administration Protocol Morphine Sulfate 2 mg 09/03/20 03:51 09/04/20 12:25 Morphine 2 Mg/1 Ml Inj IV 2 mg Q6H PRN Administration Pain, Moderate (4-6) Ondansetron HCl 4 mg 09/03/20 02:11 09/04/20 06:30 Ondansetron 4 Mg/2 Ml Inj IV 4 mg Q6HR PRN Administration Indigestion Oxycodone/Acetaminophen 1 tab 09/03/20 03:53 Oxycodone /Acetaminophen 5-325mg Tab PO Q8H PRN Pain, Moderate (4-6) Pantoprazole Sodium 40 mg 09/04/20 22:00 09/04/20 22:40 Pantoprazole 40 Mg Inj IV 40 mg BID SHWETHA Administration
[2020-09-05] MEDS: PANTOPRAZOLE 40 MG INJ IV SCH (10:59)
[2020-09-05] MEDS: CHOLESTYRAMINE (WITH SUGAR) 4 GM PACKET PO SCH ×2 (11:00→21:11)
[2020-09-05] MEDS ORDERED: oxyCODONE /ACETAMINOPHEN 5-325MG TAB PO PRN (11:00)
[2020-09-05] MEDS: MORPHINE 2 MG/1 ML INJ IV PRN ×2 (11:12→21:29)
--- NOTE | 2020-09-05 15:56 | Progress Note ---
Assessment and Plan 1. Bloody diarrhea - x ~ 1.5 wks. Etiology unclear. Stool WBC positive, c/w infectious or inflammatory process. Given acuity, IBD less likely. Pt usually has 2-3 BMs/d. Pt empirically on abx and cholestyramine. - await stool cultures - continue abx - Levbid for cramps Subjective Date of service: 09/05/20 Interval history: Pt complains of ongoing diarrhea, with 8-10 watery BMs/d, with blood. Has crampy abd pain as well. Objective - Constitutional Vitals: Vital Signs - 12hr 09/05/20 09/05/20 09/05/20 05:20 08:03 10:53 Temperature 98.6 F 98.3 F Pulse Rate 65 68 Respiratory 18 18 Rate Blood Pressure 113/74 143/74 O2 Sat by Pulse 98 99 99 Oximetry 09/05/20 11:21 Temperature 98.4 F Pulse Rate 75 Respiratory 18 Rate Blood Pressure 108/79 O2 Sat by Pulse 98 Oximetry General appearance: Present: no acute distress - EENT Eyes: PERRL, EOM intact ENT: hearing intact - Respiratory Respiratory effort: normal - Gastrointestinal General gastrointestinal: Present: soft, non-tender - Labs CBC & Chem 7: 09/05/20 05:41 09/05/20 05:41 Labs: Abnormal lab results 09/05/20 09/05/20 Range/Units 05:41 05:41 Hgb 15.4 H (11.8-15.2) gm/dl MCV 96 H (84-94) fl MCH 33 H (28-32) pg MCHC 35 H (32-34) % RDW 12.8 L (13.2-15.2) % [place] % (Auto) 13.1 H (0.0-7.3) % [place] # (Auto) 1.1 H (0.0-0.8) K/mm3 Potassium 3.4 L (3.6-5.0) mmol/L BUN 5 L (9-20) mg/dL Medications & Allergies - Medications Allergies/Adverse Reactions: Allergies No Known Allergies Allergy (Verified 09/03/20 02:19) Active Medications: Generic Name Dose Route Start Last Admin Trade Name Freq PRN Reason Stop Dose Admin Acetaminophen 650 mg 09/03/20 15:42 09/03/20 16:04 Acetaminophen 325 Mg/10.15 Ml Oral Liqd Unit Dose FEEDTUBE 650 mg Q6H PRN Administration Pain, Mild (1-3) Cholestyramine Resin 4 gm 09/04/20 22:00 09/05/20 11:00 Cholestyramine (With Sugar) 4 Gm Packet PO 4 gm BID SHWETHA Administration Dextrose/Sodium Chloride 1,000 mls @ 75 mls/hr 09/03/20 03:00 09/04/20 06:28 D5ns IV 75 mls/hr DIRECT SHWETHA Administration Levofloxacin/Dextrose 500 mg in 100 mls @ 100 mls/hr 09/03/20 12:00 09/05/20 14:01 Levaquin 500mg/100ml IV 100 mls/hr Q24H SHWETHA Administration Protocol Metronidazole 500 mg in 100 mls @ 100 mls/hr 09/04/20 17:00 09/05/20 10:59 Flagyl 500 Mg/100 Ml IV 100 mls/hr Q8H SHWETHA Administration Protocol Morphine Sulfate 2 mg 09/05/20 11:00 09/05/20 11:12 Morphine 2 Mg/1 Ml Inj IV 2 mg Q4H PRN Administration Pain, Moderate (4-6) Ondansetron HCl 4 mg 09/03/20 02:11 09/04/20 06:30 Ondansetron 4 Mg/2 Ml Inj IV 4 mg Q6HR PRN Administration Indigestion Oxycodone/Acetaminophen 1 tab 09/05/20 11:00 Oxycodone /Acetaminophen 5-325mg Tab PO Q4H PRN Pain, Moderate (4-6) Pantoprazole Sodium 40 mg 09/05/20 10:00 09/05/20 10:59 Pantoprazole 40 Mg Inj IV 40 mg QDAY SHWETHA Administration
[2020-09-05] MEDS: HYOSCYAMINE SUBL 0.125 MG TAB SL PRN (17:13)
[2020-09-05] MEDS: D5W/0.9% NACL 1,000 ML IV SCH (21:28)
[2020-09-06] MEDS: metroNIDAZOLE/NS 500 MG/100 ML 500 MG/100 ML BAG IV SCH ×3 (01:06→17:25)
[2020-09-06 04:59] LABS: Basophils % (Auto) 0.4 % (0.0-1.8); Eosinophils # (Auto) 0.1 K/mm3 (0.0-0.4); Eosinophils % (Auto) 1.2 % (0.0-4.3); Hematocrit 40.8 % (35.5-45.6); Hemoglobin 14.1 gm/dl (11.8-15.2); Lymphocytes # (Auto) 1.2 K/mm3 (1.2-5.4); Lymphocytes % (Auto) 12.9 % (13.4-35.0); Mean Corpuscular HGB Conc 35 % (32-34); Mean Corpuscular Volume 95 fl (84-94); Monocytes # (Auto) 1.1 K/mm3 (0.0-0.8); Monocytes % (Auto) 12.1 % (0.0-7.3); Red Cell Distribution Width 13.1 % (13.2-15.2)
[2020-09-06 05:34] LABS: BUN/Creatinine Ratio 6; Blood Urea Nitrogen 6 mg/dL (9-20); Calcium 8.6 mg/dL (8.4-10.2); Hemolysis Index 8
[2020-09-06 05:40] LABS: Platelet Count 384 K/mm3 (140-440)
--- NOTE | 2020-09-06 10:00 | Progress Note ---
Assessment and Plan Assessment and plan: Colitis CT of the abdomen is done-patient has colitis GI is consulted Abdominal pain Abdominal pain secondary to colitis BRBPR (bright red blood per rectum) Continue Protonix drip Diarrhea Tobacco abuse DVT prophylaxis SCD 09/04. Await stool studies. Continue IV antibiotics. Await GI plans for possible EGD/colonoscopy. 09/05. CRP normal. Await stool studies. Continue clear liquid diet and advance as tolerated. Continue Levaquin and Flagyl. GI added Questran. GI with no plans of colonoscopy at this time and will follow up as an outpatient. 09/06. Stool WBC positive but culture negative. Continue Questran. Continue IV antibiotics of Flagyl and Levaquin. Consider repeat CT scan if no significant improvement in the next 1 to 2 days. GI following. Supportive care. History Interval history: No new issues overnight. Patient still reports 15-20 diarrheal stools over 24 hours Hospitalist Physical - Constitutional Vitals: Temp Pulse Resp BP Pulse Ox 98.2 F 96 H 20 127/89 97 09/06/20 00:21 09/06/20 00:21 09/06/20 00:21 09/06/20 00:21 09/06/20 00:21 General appearance: Present: no acute distress - EENT Eyes: Present: PERRL, EOM intact ENT: hearing intact, clear oral mucosa, dentition normal - Neck Neck: Present: supple, normal ROM - Respiratory Respiratory effort: normal Respiratory: bilateral: CTA - Cardiovascular Rhythm: regular Heart Sounds: Present: S1 & S2. Absent: gallop, rub - Extremities Extremities: no ischemia, No edema, Full ROM - Abdominal General gastrointestinal: soft, non-tender, non-distended, normal bowel sounds - Integumentary Integumentary: Present: clear, warm, dry - Neurologic Neurologic: CNII-XII intact, moves all extremities Results - Labs CBC & Chem 7: 09/06/20 04:22 09/06/20 04:22 Labs: Laboratory Last Values WBC 9.5 K/mm3 (4.5-11.0) 09/06/20 04:22 RBC 4.30 M/mm3 (3.65-5.03) 09/06/20 04:22 Hgb 14.1 gm/dl (11.8-15.2) 09/06/20 04:22 Hct 40.8 % (35.5-45.6) 09/06/20 04:22 MCV 95 fl (84-94) H 09/06/20 04:22 MCH 33 pg (28-32) H 09/06/20 04:22 MCHC 35 % (32-34) H 09/06/20 04:22 RDW 13.1 % (13.2-15.2) L 09/06/20 04:22 Plt Count 384 K/mm3 (140-440) 09/06/20 04:22 Lymph % (Auto) 12.9 % (13.4-35.0) L 09/06/20 04:22 [place] % (Auto) 12.1 % (0.0-7.3) H 09/06/20 04:22 Eos % (Auto) 1.2 % (0.0-4.3) 09/06/20 04:22 Baso % (Auto) 0.4 % (0.0-1.8) 09/06/20 04:22 Lymph # (Auto) 1.2 K/mm3 (1.2-5.4) 09/06/20 04:22 [place] # (Auto) 1.1 K/mm3 (0.0-0.8) H 09/06/20 04:22 Eos # (Auto) 0.1 K/mm3 (0.0-0.4) 09/06/20 04:22 Baso # (Auto) 0.0 K/mm3 (0.0-0.1) 09/06/20 04:22 Seg Neutrophils % 73.4 % (40.0-70.0) H 09/06/20 04:22 Seg Neutrophils # 7.0 K/mm3 (1.8-7.7) 09/06/20 04:22 Sodium 142 mmol/L (137-145) 09/06/20 04:22 Potassium 3.6 mmol/L (3.6-5.0) 09/06/20 04:22 Chloride 103.1 mmol/L (98-107) 09/06/20 04:22 Carbon Dioxide 27 mmol/L (22-30) 09/06/20 04:22 Anion Gap 16 mmol/L 09/06/20 04:22 BUN 6 mg/dL (9-20) L 09/06/20 04:22 Creatinine 1.0 mg/dL (0.8-1.3) 09/06/20 04:22 Estimated GFR > 60 ml/min 09/06/20 04:22 BUN/Creatinine Ratio 6 % 09/06/20 04:22 Glucose 94 mg/dL (75-100) 09/06/20 04:22 Calcium 8.6 mg/dL (8.4-10.2) 09/06/20 04:22 Total Bilirubin 0.50 mg/dL (0.1-1.2) 09/04/20 05:44 AST 16 units/L (5-40) 09/04/20 05:44 ALT 12 units/L (7-56) 09/04/20 05:44 Alkaline Phosphatase 58 units/L (35-129) 09/04/20 05:44 C-Reactive Protein 1.30 mg/dL (0.00-1.30) 09/04/20 05:44 Total Protein 6.1 g/dL (6.3-8.2) L 09/04/20 05:44 Albumin 4.0 g/dL (3.9-5) 09/04/20 05:44 Albumin/Globulin Ratio 1.9 % 09/04/20 05:44 Lipase 17 units/L (13-60) 09/02/20 20:26 Urine Color Straw (Yellow) 09/03/20 02:27 Urine Turbidity Clear (Clear) 09/03/20 02:27 Urine pH 6.0 (5.0-7.0) 09/03/20 02:27 Ur Specific [place] 1.003 (1.003-1.030) 09/03/20 02:27 Urine Protein <15 mg/dl mg/dL (Negative) 09/03/20 02:27 Urine Glucose (UA) Neg mg/dL (Negative) 09/03/20 02:27 Urine Ketones Neg mg/dL (Negative) 09/03/20 02:27 Urine Blood Sm (Negative) 09/03/20 02:27 Urine Nitrite Neg (Negative) 09/03/20 02:27 Urine Bilirubin Neg (Negative) 09/03/20 02:27 Urine Urobilinogen < 2.0 mg/dL (<2.0) 09/03/20 02:27 Ur Leukocyte Esterase Neg (Negative) 09/03/20 02:27 Urine WBC (Auto) < 1.0 /HPF (0.0-6.0) 09/03/20 02:27 Urine RBC (Auto) < 1.0 /HPF (0.0-6.0) 09/03/20 02:27 Microbiology: Microbiology 09/03/20 10:20 Stool Stool Culture - Final 09/03/20 10:20 Stool Stool for WBCs - Final Many Polymorphonuclear Cells Seen Breaux/IV: Voiding Method Toilet IV Catheter Type [Left Forearm INT / Saline Lock ] IV Catheter Type [Right Peripheral IV Antecubital] Active Medications - Current Medications Current Medications: Generic Name Dose Route Start Last Admin Trade Name Freq PRN Reason Stop Dose Admin Acetaminophen 650 mg 09/03/20 15:42 09/03/20 16:04 Acetaminophen 325 Mg/10.15 Ml Oral Liqd Unit Dose FEEDTUBE 650 mg Q6H PRN Administration Pain, Mild (1-3) Cholestyramine Resin 4 gm 09/04/20 22:00 09/05/20 21:11 Cholestyramine (With Sugar) 4 Gm Packet PO 4 gm BID SHWETHA Administration Hyoscyamine 0.125 mg 09/05/20 15:56 09/05/20 17:13 Hyoscyamine Subl 0.125 Mg Tab SL 0.125 mg Q4H PRN Administration Spasms Dextrose/Sodium Chloride 1,000 mls @ 75 mls/hr 09/03/20 03:00 09/05/20 21:28 D5ns IV 75 mls/hr DIRECT SHWETHA Administration Levofloxacin/Dextrose 500 mg in 100 mls @ 100 mls/hr 09/03/20 12:00 09/05/20 14:01 Levaquin 500mg/100ml IV 100 mls/hr Q24H SHWETHA Administration Protocol Metronidazole 500 mg in 100 mls @ 100 mls/hr 09/04/20 17:00 09/06/20 01:06 Flagyl 500 Mg/100 Ml IV 100 mls/hr Q8H SHWETHA Administration Protocol Morphine Sulfate 2 mg 09/05/20 11:00 09/05/20 21:29 Morphine 2 Mg/1 Ml Inj IV 2 mg Q4H PRN Administration Pain, Moderate (4-6) Ondansetron HCl 4 mg 09/03/20 02:11 09/04/20 06:30 Ondansetron 4 Mg/2 Ml Inj IV 4 mg Q6HR PRN Administration Indigestion Oxycodone/Acetaminophen 1 tab 09/05/20 11:00 Oxycodone /Acetaminophen 5-325mg Tab PO Q4H PRN Pain, Moderate (4-6) Pantoprazole Sodium 40 mg 09/05/20 10:00 09/05/20 10:59 Pantoprazole 40 Mg Inj IV 40 mg QDAY SHWETHA Administration
[2020-09-06] MEDS: HYOSCYAMINE SUBL 0.125 MG TAB SL PRN (11:18)
[2020-09-06] MEDS: D5W/0.9% NACL 1,000 ML IV SCH (11:19)
[2020-09-06] MEDS: PANTOPRAZOLE 40 MG INJ IV SCH (11:20)
[2020-09-06] MEDS: CHOLESTYRAMINE (WITH SUGAR) 4 GM PACKET PO SCH (11:20)
--- NOTE | 2020-09-06 15:22 | Progress Note ---
Assessment and Plan 1. Bloody diarrhea - x ~ 1.5 wks. Etiology unclear. Stool WBC positive, c/w infectious or inflammatory process. Stool cultures negative. Given acuity, IBD less likely. Pt usually has 2-3 BMs/d. Pt empirically on abx and cholestyramin e, and denies improvement. Looks remarkably good, with normal labs, given symptoms. Need to consider C diff. If no better, may consider empiric trial of steroids, and colonoscopy. - check for C diff - continue abx - Levsin for cramps Please note that pt anxious, and considering leaving to go to another facility. Subjective Date of service: 09/06/20 Interval history: Pt complains of ongoing diarrhea, with 8-10 watery BMs so far today, with blood. Has crampy abd pain as well. No significant improvement. Objective - Constitutional Vitals: Vital Signs - 12hr 09/06/20 11:26 O2 Sat by Pulse 97 Oximetry General appearance: Present: no acute distress, other (Anxious) - EENT Eyes: PERRL, EOM intact - Respiratory Respiratory effort: normal - Gastrointestinal General gastrointestinal: Present: soft, non-tender - Labs CBC & Chem 7: 09/06/20 04:22 09/06/20 04:22 Labs: Abnormal lab results 09/06/20 09/06/20 Range/Units 04:22 04:22 MCV 95 H (84-94) fl MCH 33 H (28-32) pg MCHC 35 H (32-34) % RDW 13.1 L (13.2-15.2) % Lymph % (Auto) 12.9 L (13.4-35.0) % [place] % (Auto) 12.1 H (0.0-7.3) % [place] # (Auto) 1.1 H (0.0-0.8) K/mm3 Seg Neutrophils % 73.4 H (40.0-70.0) % BUN 6 L (9-20) mg/dL Medications & Allergies - Medications Allergies/Adverse Reactions: Allergies No Known Allergies Allergy (Verified 09/03/20 02:19) Active Medications: Generic Name Dose Route Start Last Admin Trade Name Freq PRN Reason Stop Dose Admin Acetaminophen 650 mg 09/03/20 15:42 09/03/20 16:04 Acetaminophen 325 Mg/10.15 Ml Oral Liqd Unit Dose FEEDTUBE 650 mg Q6H PRN Administration Pain, Mild (1-3) Cholestyramine Resin 4 gm 09/04/20 22:00 09/06/20 11:20 Cholestyramine (With Sugar) 4 Gm Packet PO 4 gm BID SHWETHA Administration Hyoscyamine 0.125 mg 09/05/20 15:56 09/06/20 11:18 Hyoscyamine Subl 0.125 Mg Tab SL 0.125 mg Q4H PRN Administration Spasms Dextrose/Sodium Chloride 1,000 mls @ 75 mls/hr 09/03/20 03:00 09/06/20 11:19 D5ns IV 75 mls/hr DIRECT SHWETHA Administration Levofloxacin/Dextrose 500 mg in 100 mls @ 100 mls/hr 09/03/20 12:00 09/06/20 13:39 Levaquin 500mg/100ml IV 100 mls/hr Q24H SHWETHA Administration Protocol Metronidazole 500 mg in 100 mls @ 100 mls/hr 09/04/20 17:00 09/06/20 11:18 Flagyl 500 Mg/100 Ml IV 100 mls/hr Q8H SHWETHA Administration Protocol Morphine Sulfate 2 mg 09/05/20 11:00 09/05/20 21:29 Morphine 2 Mg/1 Ml Inj IV 2 mg Q4H PRN Administration Pain, Moderate (4-6) Ondansetron HCl 4 mg 09/03/20 02:11 09/04/20 06:30 Ondansetron 4 Mg/2 Ml Inj IV 4 mg Q6HR PRN Administration Indigestion Oxycodone/Acetaminophen 1 tab 09/05/20 11:00 Oxycodone /Acetaminophen 5-325mg Tab PO Q4H PRN Pain, Moderate (4-6) Pantoprazole Sodium 40 mg 09/05/20 10:00 09/06/20 11:20 Pantoprazole 40 Mg Inj IV 40 mg QDAY SHWETHA Administration
[2020-09-06] MEDS: HYOSCYAMINE SUBL 0.125 MG TAB SL SCH (17:59)
[2020-09-07] MEDS: CHOLESTYRAMINE (WITH SUGAR) 4 GM PACKET PO SCH ×3 (00:01→21:29)
[2020-09-07] MEDS: metroNIDAZOLE/NS 500 MG/100 ML 500 MG/100 ML BAG IV SCH ×3 (01:40→17:58)
[2020-09-07] MEDS: HYOSCYAMINE SUBL 0.125 MG TAB SL SCH ×5 (06:22→21:29)
[2020-09-07] MEDS: D5W/0.9% NACL 1,000 ML IV SCH (06:43)
--- NOTE | 2020-09-07 08:22 | Progress Note ---
Assessment and Plan Assessment and plan: Colitis CT of the abdomen is done-patient has colitis GI is consulted Abdominal pain Abdominal pain secondary to colitis BRBPR (bright red blood per rectum) Continue Protonix drip Diarrhea Tobacco abuse DVT prophylaxis SCD 09/04. Await stool studies. Continue IV antibiotics. Await GI plans for possible EGD/colonoscopy. 09/05. CRP normal. Await stool studies. Continue clear liquid diet and advance as tolerated. Continue Levaquin and Flagyl. GI added Questran. GI with no plans of colonoscopy at this time and will follow up as an outpatient. 09/06. Stool WBC positive but culture negative. Continue Questran. Continue IV antibiotics of Flagyl and Levaquin. Consider repeat CT scan if no significant improvement in the next 1 to 2 days. GI following. Supportive care. 09/07. Stool WBC positive but culture negative. Continue Questran. Continue IV antibiotics of Flagyl and Levaquin. Consider repeat CT scan if no significant improvement in the next 1 to 2 days. GI following. Supportive care. Patient continues to complain of ongoing diarrhea and abdominal cramping. Check C. difficile toxin. GI to consider empiric trial of steroids and colonoscopy. History Interval history: No new issues overnight. Patient still reports 15-20 diarrheal stools over 24 hours Hospitalist Physical - Constitutional Vitals: Temp Pulse Resp BP Pulse Ox 98.2 F 72 18 110/61 97 09/07/20 04:47 09/07/20 04:47 09/07/20 04:47 09/07/20 04:47 09/07/20 04:47 General appearance: Present: no acute distress, other (Anxious) - EENT Eyes: Present: PERRL, EOM intact ENT: hearing intact, clear oral mucosa, dentition normal - Neck Neck: Present: supple, normal ROM - Respiratory Respiratory effort: normal Respiratory: bilateral: CTA - Cardiovascular Rhythm: regular Heart Sounds: Present: S1 & S2. Absent: gallop, rub - Extremities Extremities: no ischemia, No edema, Full ROM - Abdominal General gastrointestinal: soft, non-tender, non-distended, normal bowel sounds - Integumentary Integumentary: Present: clear, warm, dry - Neurologic Neurologic: CNII-XII intact, moves all extremities Results - Labs CBC & Chem 7: 09/06/20 04:22 09/06/20 04:22 Labs: Laboratory Last Values WBC 9.5 K/mm3 (4.5-11.0) 09/06/20 04:22 RBC 4.30 M/mm3 (3.65-5.03) 09/06/20 04:22 Hgb 14.1 gm/dl (11.8-15.2) 09/06/20 04:22 Hct 40.8 % (35.5-45.6) 09/06/20 04:22 MCV 95 fl (84-94) H 09/06/20 04:22 MCH 33 pg (28-32) H 09/06/20 04:22 MCHC 35 % (32-34) H 09/06/20 04:22 RDW 13.1 % (13.2-15.2) L 09/06/20 04:22 Plt Count 384 K/mm3 (140-440) 09/06/20 04:22 Lymph % (Auto) 12.9 % (13.4-35.0) L 09/06/20 04:22 [place] % (Auto) 12.1 % (0.0-7.3) H 09/06/20 04:22 Eos % (Auto) 1.2 % (0.0-4.3) 09/06/20 04:22 Baso % (Auto) 0.4 % (0.0-1.8) 09/06/20 04:22 Lymph # (Auto) 1.2 K/mm3 (1.2-5.4) 09/06/20 04:22 [place] # (Auto) 1.1 K/mm3 (0.0-0.8) H 09/06/20 04:22 Eos # (Auto) 0.1 K/mm3 (0.0-0.4) 09/06/20 04:22 Baso # (Auto) 0.0 K/mm3 (0.0-0.1) 09/06/20 04:22 Seg Neutrophils % 73.4 % (40.0-70.0) H 09/06/20 04:22 Seg Neutrophils # 7.0 K/mm3 (1.8-7.7) 09/06/20 04:22 Sodium 142 mmol/L (137-145) 09/06/20 04:22 Potassium 3.6 mmol/L (3.6-5.0) 09/06/20 04:22 Chloride 103.1 mmol/L (98-107) 09/06/20 04:22 Carbon Dioxide 27 mmol/L (22-30) 09/06/20 04:22 Anion Gap 16 mmol/L 09/06/20 04:22 BUN 6 mg/dL (9-20) L 09/06/20 04:22 Creatinine 1.0 mg/dL (0.8-1.3) 09/06/20 04:22 Estimated GFR > 60 ml/min 09/06/20 04:22 BUN/Creatinine Ratio 6 % 09/06/20 04:22 Glucose 94 mg/dL (75-100) 09/06/20 04:22 Calcium 8.6 mg/dL (8.4-10.2) 09/06/20 04:22 Total Bilirubin 0.50 mg/dL (0.1-1.2) 09/04/20 05:44 AST 16 units/L (5-40) 09/04/20 05:44 ALT 12 units/L (7-56) 09/04/20 05:44 Alkaline Phosphatase 58 units/L (35-129) 09/04/20 05:44 C-Reactive Protein 1.30 mg/dL (0.00-1.30) 09/04/20 05:44 Total Protein 6.1 g/dL (6.3-8.2) L 09/04/20 05:44 Albumin 4.0 g/dL (3.9-5) 09/04/20 05:44 Albumin/Globulin Ratio 1.9 % 09/04/20 05:44 Lipase 17 units/L (13-60) 09/02/20 20:26 Urine Color Straw (Yellow) 09/03/20 02:27 Urine Turbidity Clear (Clear) 09/03/20 02:27 Urine pH 6.0 (5.0-7.0) 09/03/20 02:27 Ur Specific [place] 1.003 (1.003-1.030) 09/03/20 02:27 Urine Protein <15 mg/dl mg/dL (Negative) 09/03/20 02:27 Urine Glucose (UA) Neg mg/dL (Negative) 09/03/20 02:27 Urine Ketones Neg mg/dL (Negative) 09/03/20 02:27 Urine Blood Sm (Negative) 09/03/20 02:27 Urine Nitrite Neg (Negative) 09/03/20 02:27 Urine Bilirubin Neg (Negative) 09/03/20 02:27 Urine Urobilinogen < 2.0 mg/dL (<2.0) 09/03/20 02:27 Ur Leukocyte Esterase Neg (Negative) 09/03/20 02:27 Urine WBC (Auto) < 1.0 /HPF (0.0-6.0) 09/03/20 02:27 Urine RBC (Auto) < 1.0 /HPF (0.0-6.0) 09/03/20 02:27 Breaux/IV: Voiding Method Toilet IV Catheter Type [Left Forearm INT / Saline Lock ] IV Catheter Type [Right Peripheral IV Antecubital] Active Medications - Current Medications Current Medications: Generic Name Dose Route Start Last Admin Trade Name Freq PRN Reason Stop Dose Admin Acetaminophen 650 mg 09/03/20 15:42 09/03/20 16:04 Acetaminophen 325 Mg/10.15 Ml Oral Liqd Unit Dose FEEDTUBE 650 mg Q6H PRN Administration Pain, Mild (1-3) Cholestyramine Resin 4 gm 09/04/20 22:00 09/07/20 00:01 Cholestyramine (With Sugar) 4 Gm Packet PO 4 gm BID SHWETHA Administration Hyoscyamine 0.125 mg 09/06/20 16:00 09/07/20 06:22 Hyoscyamine Subl 0.125 Mg Tab SL 0.125 mg Q6H SHWETHA Administration Dextrose/Sodium Chloride 1,000 mls @ 75 mls/hr 09/03/20 03:00 09/07/20 06:43 D5ns IV 75 mls/hr DIRECT SHWETHA Administration Levofloxacin/Dextrose 500 mg in 100 mls @ 100 mls/hr 09/03/20 12:00 09/06/20 13:39 Levaquin 500mg/100ml IV 100 mls/hr Q24H SHWETHA Administration Protocol Metronidazole 500 mg in 100 mls @ 100 mls/hr 09/04/20 17:00 09/07/20 01:40 Flagyl 500 Mg/100 Ml IV 100 mls/hr Q8H SHWETHA Administration Protocol Morphine Sulfate 2 mg 09/05/20 11:00 09/05/20 21:29 Morphine 2 Mg/1 Ml Inj IV 2 mg Q4H PRN Administration Pain, Moderate (4-6) Ondansetron HCl 4 mg 09/03/20 02:11 09/04/20 06:30 Ondansetron 4 Mg/2 Ml Inj IV 4 mg Q6HR PRN Administration Indigestion Oxycodone/Acetaminophen 1 tab 09/05/20 11:00 Oxycodone /Acetaminophen 5-325mg Tab PO Q4H PRN Pain, Moderate (4-6) Pantoprazole Sodium 40 mg 09/05/20 10:00 09/06/20 11:20 Pantoprazole 40 Mg Inj IV 40 mg QDAY SHWETHA Administration
--- NOTE | 2020-09-07 12:10 | Progress Note ---
Assessment and Plan 1. Bloody diarrhea - x ~ 1.5 wks. C diff pending. Etiology unclear. Stool WBC positive, c/w infectious or inflammatory process. Stool cultures negative. Given acuity, IBD less likely. Pt usually has 2-3 BMs/d. Pt empirically on abx and cholestyramine, and denies improvement. Looks remarkably good, with normal labs, given symptoms. Need to consider C diff. If no better, may consider empiric trial of steroids, and colonoscopy. - f/u C diff - advance diet - continue abx - Levsin for cramps - if no better, colonoscopy and steroids Subjective Date of service: 09/07/20 Interval history: Pt complains of ongoing diarrhea, with 8-10 watery BMs so far today, with blood. Has crampy abd pain as well. No significant improvement. Frustrated, anxious, and scared. Objective - Constitutional Vitals: Vital Signs - 12hr 09/07/20 09/07/20 04:47 08:19 Temperature 98.2 F 98.2 F Pulse Rate 72 74 Respiratory 18 18 Rate Blood Pressure 110/61 Blood Pressure 110/60 [Left] O2 Sat by Pulse 97 98 Oximetry General appearance: Present: mild distress, other (Anxious) - EENT Eyes: PERRL, EOM intact ENT: hearing intact - Respiratory Respiratory effort: normal - Gastrointestinal General gastrointestinal: Present: soft, non-tender - Labs CBC & Chem 7: 09/06/20 04:22 09/06/20 04:22 Medications & Allergies - Medications Allergies/Adverse Reactions: Allergies No Known Allergies Allergy (Verified 09/03/20 02:19) Active Medications: Generic Name Dose Route Start Last Admin Trade Name Freq PRN Reason Stop Dose Admin Acetaminophen 650 mg 09/03/20 15:42 09/03/20 16:04 Acetaminophen 325 Mg/10.15 Ml Oral Liqd Unit Dose FEEDTUBE 650 mg Q6H PRN Administration Pain, Mild (1-3) Cholestyramine Resin 4 gm 09/04/20 22:00 09/07/20 00:01 Cholestyramine (With Sugar) 4 Gm Packet PO 4 gm BID SHWETHA Administration Hyoscyamine 0.125 mg 09/06/20 16:00 09/07/20 06:22 Hyoscyamine Subl 0.125 Mg Tab SL 0.125 mg Q6H SHWETHA Administration Dextrose/Sodium Chloride 1,000 mls @ 75 mls/hr 09/03/20 03:00 09/07/20 06:43 D5ns IV 75 mls/hr DIRECT SHWETHA Administration Levofloxacin/Dextrose 500 mg in 100 mls @ 100 mls/hr 09/03/20 12:00 09/06/20 13:39 Levaquin 500mg/100ml IV 100 mls/hr Q24H SHWETHA Administration Protocol Metronidazole 500 mg in 100 mls @ 100 mls/hr 09/04/20 17:00 09/07/20 01:40 Flagyl 500 Mg/100 Ml IV 100 mls/hr Q8H SHWETHA Administration Protocol Morphine Sulfate 2 mg 09/05/20 11:00 09/05/20 21:29 Morphine 2 Mg/1 Ml Inj IV 2 mg Q4H PRN Administration Pain, Moderate (4-6) Ondansetron HCl 4 mg 09/03/20 02:11 09/04/20 06:30 Ondansetron 4 Mg/2 Ml Inj IV 4 mg Q6HR PRN Administration Indigestion Oxycodone/Acetaminophen 1 tab 09/05/20 11:00 Oxycodone /Acetaminophen 5-325mg Tab PO Q4H PRN Pain, Moderate (4-6) Pantoprazole Sodium 40 mg 09/05/20 10:00 09/06/20 11:20 Pantoprazole 40 Mg Inj IV 40 mg QDAY SHWETHA Administration
[2020-09-07] MEDS: PANTOPRAZOLE 40 MG INJ IV SCH (12:14)
[2020-09-08] MEDS: metroNIDAZOLE/NS 500 MG/100 ML 500 MG/100 ML BAG IV SCH ×3 (00:35→18:54)
[2020-09-08 04:06] LABS: BUN/Creatinine Ratio 10; Blood Urea Nitrogen 9 mg/dL (9-20); Calcium 8.1 mg/dL (8.4-10.2); Hemolysis Index 5
[2020-09-08 04:29] LABS: Basophils % (Auto) 0.4 % (0.0-1.8); Eosinophils # (Auto) 0.1 K/mm3 (0.0-0.4); Eosinophils % (Auto) 0.6 % (0.0-4.3); Hematocrit 39.8 % (35.5-45.6); Hemoglobin 13.4 gm/dl (11.8-15.2); Lymphocytes # (Auto) 1.3 K/mm3 (1.2-5.4); Lymphocytes % (Auto) 11.6 % (13.4-35.0); Mean Corpuscular HGB Conc 34 % (32-34); Mean Corpuscular Volume 95 fl (84-94); Monocytes # (Auto) 1.3 K/mm3 (0.0-0.8); Monocytes % (Auto) 11.8 % (0.0-7.3); Platelet Count 393 K/mm3 (140-440); Red Blood Count 4.19 M/mm3 (3.65-5.03)
[2020-09-08] MEDS: HYOSCYAMINE SUBL 0.125 MG TAB SL SCH ×4 (05:33→21:12)
[2020-09-08] MEDS: PANTOPRAZOLE 40 MG INJ IV SCH (10:17)
[2020-09-08] MEDS: POTASSIUM CHLORIDE 10 MEQ 10 MEQ/100 ML BAG IV SCH ×2 (11:00→19:50)
--- NOTE | 2020-09-08 11:18 | Progress Note ---
Assessment and Plan 1. Bloody diarrhea - x ~ 1.5 wks. Signifcantly better today. C diff still pending. Etiology unclear. Stool WBC positive, c/w infectious or inflammatory process. Stool cultures negative. Given acuity, IBD less likely. Pt usually has 2-3 BMs/d. Pt empirically on abx and cholestyramine, and Levsin. Looks remarkably good, with normal labs, given symptoms. Was planning colonoscopy for tomorrow, but since better, will hold off, after lengthy discussion with pt as to pros and cons. If continues to improve, may D/C in AM. - f/u C diff - continue abx - Levsin for cramps - if no better, colonoscopy and steroids Subjective Date of service: 09/08/20 Interval history: Pt states he is better. Has had 3 loose BMs today, with streaks of BRB. This is down from 10 yesterday at this time. Abd cramping less as well. Alicja regular diet well. Objective - Constitutional Vitals: Vital Signs - 12hr 09/07/20 09/08/20 09/08/20 23:48 04:53 08:38 Temperature 98.3 F 98.7 F 98.2 F Pulse Rate 101 H 82 80 Respiratory 18 18 16 Rate Blood Pressure 133/86 135/79 Blood Pressure 130/75 [Left] O2 Sat by Pulse 96 94 98 Oximetry General appearance: Present: no acute distress - EENT Eyes: PERRL, EOM intact ENT: hearing intact - Respiratory Respiratory effort: normal - Gastrointestinal General gastrointestinal: Present: soft, non-tender - Labs CBC & Chem 7: 09/08/20 03:25 09/08/20 03:25 Labs: Abnormal lab results 09/08/20 09/08/20 Range/Units 03:25 03:25 MCV 95 H (84-94) fl RDW 13.0 L (13.2-15.2) % Lymph % (Auto) 11.6 L (13.4-35.0) % [place] % (Auto) 11.8 H (0.0-7.3) % [place] # (Auto) 1.3 H (0.0-0.8) K/mm3 Seg Neutrophils % 75.6 H (40.0-70.0) % Seg Neutrophils # 8.3 H (1.8-7.7) K/mm3 Potassium 3.4 L (3.6-5.0) mmol/L Calcium 8.1 L (8.4-10.2) mg/dL Medications & Allergies - Medications Allergies/Adverse Reactions: Allergies No Known Allergies Allergy (Verified 09/03/20 02:19) Active Medications: Generic Name Dose Route Start Last Admin Trade Name Freq PRN Reason Stop Dose Admin Acetaminophen 650 mg 09/03/20 15:42 09/03/20 16:04 Acetaminophen 325 Mg/10.15 Ml Oral Liqd Unit Dose FEEDTUBE 650 mg Q6H PRN Administration Pain, Mild (1-3) Cholestyramine Resin 4 gm 09/04/20 22:00 09/07/20 21:29 Cholestyramine (With Sugar) 4 Gm Packet PO 4 gm BID SHWETHA Administration Hyoscyamine 0.125 mg 09/06/20 16:00 09/08/20 05:33 Hyoscyamine Subl 0.125 Mg Tab SL 0.125 mg Q6H SHWETHA Administration Dextrose/Sodium Chloride 1,000 mls @ 75 mls/hr 09/03/20 03:00 09/07/20 06:43 D5ns IV 75 mls/hr DIRECT SHWETHA Administration Levofloxacin/Dextrose 500 mg in 100 mls @ 100 mls/hr 09/03/20 12:00 09/07/20 12:19 Levaquin 500mg/100ml IV 100 mls/hr Q24H SHWETHA Administration Protocol Metronidazole 500 mg in 100 mls @ 100 mls/hr 09/04/20 17:00 09/08/20 00:35 Flagyl 500 Mg/100 Ml IV 100 mls/hr Q8H SHWETHA Administration Protocol Potassium Chloride 10 meq in 100 mls @ 100 mls/hr 09/08/20 09:00 Kcl 10meq/100ml IV 09/08/20 12:59 Q1H SHWETHA Morphine Sulfate 2 mg 09/05/20 11:00 09/05/20 21:29 Morphine 2 Mg/1 Ml Inj IV 2 mg Q4H PRN Administration Pain, Moderate (4-6) Ondansetron HCl 4 mg 09/03/20 02:11 09/04/20 06:30 Ondansetron 4 Mg/2 Ml Inj IV 4 mg Q6HR PRN Administration Indigestion Oxycodone/Acetaminophen 1 tab 09/05/20 11:00 Oxycodone /Acetaminophen 5-325mg Tab PO Q4H PRN Pain, Moderate (4-6) Pantoprazole Sodium 40 mg 09/05/20 10:00 09/07/20 12:14 Pantoprazole 40 Mg Inj IV 40 mg QDAY SHWETHA Administration
[2020-09-08] MEDS: CHOLESTYRAMINE (WITH SUGAR) 4 GM PACKET PO SCH ×2 (11:21→21:12)
--- NOTE | 2020-09-08 12:24 | Progress Note ---
Assessment and Plan Assessment and plan: Colitis CT shows colitis Plan for colonoscopy if not improving Abdominal pain Abdominal pain secondary to colitis BRBPR (bright red blood per rectum) Continue Protonix drip Diarrhea SLight improvement today Tobacco abuse DVT prophylaxis SCD 09/04. Await stool studies. Continue IV antibiotics. Await GI plans for possible EGD/colonoscopy. 09/05. CRP normal. Await stool studies. Continue clear liquid diet and advance as tolerated. Continue Levaquin and Flagyl. GI added Questran. GI with no plans of colonoscopy at this time and will follow up as an outpatient. 09/06. Stool WBC positive but culture negative. Continue Questran. Continue IV antibiotics of Flagyl and Levaquin. Consider repeat CT scan if no significant improvement in the next 1 to 2 days. GI following. Supportive care. 09/07. Stool WBC positive but culture negative. Continue Questran. Continue IV antibiotics of Flagyl and Levaquin. Consider repeat CT scan if no significant improvement in the next 1 to 2 days. GI following. Supportive care. Patient continues to complain of ongoing diarrhea and abdominal cramping. Check C. difficile toxin. GI to consider empiric trial of steroids and colonoscopy. Advised to be treated but is denying fevers. 09/08. Still has diarrhea but has less cramping today. Frequency of diarrhea is improving. Awaiting C diff. Hold colonoscopy as he is improving as per GI. Remains on antibiotics - flagyl and levaquin. History Interval history: Had 3 Bms with blood since midnight Has less cramps. GI will hold plan for colonoscopy today. Hospitalist Physical - Physical exam Narrative exam: VITAL SIGNS: Reviewed. GENERAL: Awake HEAD: No signs of head trauma. EYES: Pupils are equal. Extraocular motions intact. MOUTH: Oropharynx is normal. NECK: No adenopathy, no JVD. CHEST: Chest with diminished breath sounds bilaterally. No wheezes, rales, or rhonchi. CARDIAC: normal S1 and S2, without murmurs, gallops, or rubs. ABDOMEN: Soft, non tender and non distended. No rebound or guarding, and no masses palpated. Bowel Sounds normal. MUSCULOSKELETAL: No edema NEUROLOGIC EXAM: Alert and oriented x3. No focal neurologic deficits SKIN: No obvious lesions With multiple - Constitutional Vitals: Temp Pulse Resp BP Pulse Ox 98.2 F 80 16 130/75 98 09/08/20 08:38 09/08/20 08:38 09/08/20 08:38 09/08/20 08:38 09/08/20 08:38 Results - Labs CBC & Chem 7: 09/08/20 03:25 09/08/20 03:25 Labs: Laboratory Last Values WBC 11.0 K/mm3 (4.5-11.0) 09/08/20 03:25 RBC 4.19 M/mm3 (3.65-5.03) 09/08/20 03:25 Hgb 13.4 gm/dl (11.8-15.2) 09/08/20 03:25 Hct 39.8 % (35.5-45.6) 09/08/20 03:25 MCV 95 fl (84-94) H 09/08/20 03:25 MCH 32 pg (28-32) 09/08/20 03:25 MCHC 34 % (32-34) 09/08/20 03:25 RDW 13.0 % (13.2-15.2) L 09/08/20 03:25 Plt Count 393 K/mm3 (140-440) 09/08/20 03:25 Lymph % (Auto) 11.6 % (13.4-35.0) L 09/08/20 03:25 [place] % (Auto) 11.8 % (0.0-7.3) H 09/08/20 03:25 Eos % (Auto) 0.6 % (0.0-4.3) 09/08/20 03:25 Baso % (Auto) 0.4 % (0.0-1.8) 09/08/20 03:25 Lymph # (Auto) 1.3 K/mm3 (1.2-5.4) 09/08/20 03:25 [place] # (Auto) 1.3 K/mm3 (0.0-0.8) H 09/08/20 03:25 Eos # (Auto) 0.1 K/mm3 (0.0-0.4) 09/08/20 03:25 Baso # (Auto) 0.0 K/mm3 (0.0-0.1) 09/08/20 03:25 Seg Neutrophils % 75.6 % (40.0-70.0) H 09/08/20 03:25 Seg Neutrophils # 8.3 K/mm3 (1.8-7.7) H 09/08/20 03:25 Sodium 139 mmol/L (137-145) 09/08/20 03:25 Potassium 3.4 mmol/L (3.6-5.0) L 09/08/20 03:25 Chloride 103.9 mmol/L (98-107) 09/08/20 03:25 Carbon Dioxide 26 mmol/L (22-30) 09/08/20 03:25 Anion Gap 13 mmol/L 09/08/20 03:25 BUN 9 mg/dL (9-20) 09/08/20 03:25 Creatinine 0.9 mg/dL (0.8-1.3) 09/08/20 03:25 Estimated GFR > 60 ml/min 09/08/20 03:25 BUN/Creatinine Ratio 10 % 09/08/20 03:25 Glucose 95 mg/dL (75-100) 09/08/20 03:25 Calcium 8.1 mg/dL (8.4-10.2) L 09/08/20 03:25 Total Bilirubin 0.50 mg/dL (0.1-1.2) 09/04/20 05:44 AST 16 units/L (5-40) 09/04/20 05:44 ALT 12 units/L (7-56) 09/04/20 05:44 Alkaline Phosphatase 58 units/L (35-129) 09/04/20 05:44 C-Reactive Protein 1.30 mg/dL (0.00-1.30) 09/04/20 05:44 Total Protein 6.1 g/dL (6.3-8.2) L 09/04/20 05:44 Albumin 4.0 g/dL (3.9-5) 09/04/20 05:44 Albumin/Globulin Ratio 1.9 % 09/04/20 05:44 Lipase 17 units/L (13-60) 09/02/20 20:26 Urine Color Straw (Yellow) 09/03/20 02:27 Urine Turbidity Clear (Clear) 09/03/20 02:27 Urine pH 6.0 (5.0-7.0) 09/03/20 02:27 Ur Specific [place] 1.003 (1.003-1.030) 09/03/20 02:27 Urine Protein <15 mg/dl mg/dL (Negative) 09/03/20 02:27 Urine Glucose (UA) Neg mg/dL (Negative) 09/03/20 02:27 Urine Ketones Neg mg/dL (Negative) 09/03/20 02:27 Urine Blood Sm (Negative) 09/03/20 02:27 Urine Nitrite Neg (Negative) 09/03/20 02:27 Urine Bilirubin Neg (Negative) 09/03/20 02:27 Urine Urobilinogen < 2.0 mg/dL (<2.0) 09/03/20 02:27 Ur Leukocyte Esterase Neg (Negative) 09/03/20 02:27 Urine WBC (Auto) < 1.0 /HPF (0.0-6.0) 09/03/20 02:27 Urine RBC (Auto) < 1.0 /HPF (0.0-6.0) 09/03/20 02:27 Breaux/IV: Voiding Method Toilet IV Catheter Type [Left Forearm INT / Saline Lock ] IV Catheter Type [Right Peripheral IV Antecubital] Active Medications - Current Medications Current Medications: Generic Name Dose Route Start Last Admin Trade Name Freq PRN Reason Stop Dose Admin Acetaminophen 650 mg 09/03/20 15:42 09/03/20 16:04 Acetaminophen 325 Mg/10.15 Ml Oral Liqd Unit Dose FEEDTUBE 650 mg Q6H PRN Administration Pain, Mild (1-3) Cholestyramine Resin 4 gm 09/04/20 22:00 09/07/20 21:29 Cholestyramine (With Sugar) 4 Gm Packet PO 4 gm BID SHWETHA Administration Hyoscyamine 0.125 mg 09/06/20 16:00 09/08/20 05:33 Hyoscyamine Subl 0.125 Mg Tab SL 0.125 mg Q6H SHWETHA Administration Dextrose/Sodium Chloride 1,000 mls @ 75 mls/hr 09/03/20 03:00 09/07/20 06:43 D5ns IV 75 mls/hr DIRECT SHWETHA Administration Levofloxacin/Dextrose 500 mg in 100 mls @ 100 mls/hr 09/03/20 12:00 09/07/20 12:19 Levaquin 500mg/100ml IV 100 mls/hr Q24H SHWETHA Administration Protocol Metronidazole 500 mg in 100 mls @ 100 mls/hr 09/04/20 17:00 09/08/20 00:35 Flagyl 500 Mg/100 Ml IV 100 mls/hr Q8H SHWETHA Administration Protocol Potassium Chloride 10 meq in 100 mls @ 100 mls/hr 09/08/20 09:00 Kcl 10meq/100ml IV 09/08/20 12:59 Q1H SHWETHA Morphine Sulfate 2 mg 09/05/20 11:00 09/05/20 21:29 Morphine 2 Mg/1 Ml Inj IV 2 mg Q4H PRN Administration Pain, Moderate (4-6) Ondansetron HCl 4 mg 09/03/20 02:11 09/04/20 06:30 Ondansetron 4 Mg/2 Ml Inj IV 4 mg Q6HR PRN Administration Indigestion Oxycodone/Acetaminophen 1 tab 09/05/20 11:00 Oxycodone /Acetaminophen 5-325mg Tab PO Q4H PRN Pain, Moderate (4-6) Pantoprazole Sodium 40 mg 09/05/20 10:00 09/07/20 12:14 Pantoprazole 40 Mg Inj IV 40 mg QDAY SHWETHA Administration
[2020-09-08] MEDS ORDERED: POTASSIUM CHLORIDE ER 10 MEQ TAB PO NR (16:00)
[2020-09-09] MEDS: D5W/0.9% NACL 1,000 ML IV SCH ×2 (02:01→19:42)
[2020-09-09] MEDS: metroNIDAZOLE/NS 500 MG/100 ML 500 MG/100 ML BAG IV SCH ×2 (02:32→09:30)
[2020-09-09] MEDS: HYOSCYAMINE SUBL 0.125 MG TAB SL SCH ×3 (04:23→22:04)
[2020-09-09 07:39] LABS: Alanine Aminotransferase 26 units/L (7-56); Albumin 3.3 g/dL (3.9-5); BUN/Creatinine Ratio 9; Blood Urea Nitrogen 7 mg/dL (9-20); Hemolysis Index 5
[2020-09-09] MEDS: PANTOPRAZOLE 40 MG INJ IV SCH (10:10)
[2020-09-09] MEDS: CHOLESTYRAMINE (WITH SUGAR) 4 GM PACKET PO SCH ×2 (11:09→22:04)
--- NOTE | 2020-09-09 13:39 | Progress Note ---
Assessment and Plan Assessment and plan: Colitis CT shows colitis C -diff negative Plan for colonoscopy if not improving Abdominal pain Abdominal pain secondary to colitis BRBPR (bright red blood per rectum) Continue Protonix drip Diarrhea C diff negative GI following. May need colonoscopy Tobacco abuse DVT prophylaxis SCD 09/04. Await stool studies. Continue IV antibiotics. Await GI plans for possible EGD/colonoscopy. 09/05. CRP normal. Await stool studies. Continue clear liquid diet and advance as tolerated. Continue Levaquin and Flagyl. GI added Questran. GI with no jammie ns of colonoscopy at this time and will follow up as an outpatient. 09/06. Stool WBC positive but culture negative. Continue Questran. Continue IV antibiotics of Flagyl and Levaquin. Consider repeat CT scan if no significant improvement in the next 1 to 2 days. GI following. Supportive care. 09/07. Stool WBC positive but culture negative. Continue Questran. Continue IV antibiotics of Flagyl and Levaquin. Consider repeat CT scan if no significant improvement in the next 1 to 2 days. GI following. Supportive care. Patient continues to complain of ongoing diarrhea and abdominal cramping. Check C. difficile toxin. GI to consider empiric trial of steroids and colonoscopy. Advised to be treated but is denying fevers. 09/08. Still has diarrhea but has less cramping today. Frequency of diarrhea is improving. Awaiting C diff. Hold colonoscopy as he is improving as per GI. Remains on antibiotics - flagyl and levaquin. 09/09. Still has diarrhea. C diff is negative. May need colonoscopy. Awaiting GI reeval. History Interval history: having severe diarrhea and abdominal cramps c diff negative. Hospitalist Physical - Physical exam Narrative exam: VITAL SIGNS: Reviewed. GENERAL: Awake HEAD: No signs of head trauma. EYES: Pupils are equal. Extraocular motions intact. MOUTH: Oropharynx is normal. NECK: No adenopathy, no JVD. CHEST: Chest with diminished breath sounds bilaterally. No wheezes, rales, or rhonchi. CARDIAC: normal S1 and S2, without murmurs, gallops, or rubs. ABDOMEN: Soft, non tender and non distended. No rebound or guarding, and no masses palpated. Bowel Sounds normal. MUSCULOSKELETAL: No edema NEUROLOGIC EXAM: Alert and oriented x3. No focal neurologic deficits SKIN: No obvious lesions With multiple - Constitutional Vitals: Temp Pulse Resp BP Pulse Ox 98.4 F 81 17 109/62 99 09/09/20 08:29 09/09/20 08:29 09/09/20 08:29 09/09/20 08:29 09/09/20 08:29 Results - Labs CBC & Chem 7: 09/08/20 03:25 09/09/20 06:50 Labs: Laboratory Last Values WBC 11.0 K/mm3 (4.5-11.0) 09/08/20 03:25 RBC 4.19 M/mm3 (3.65-5.03) 09/08/20 03:25 Hgb 13.4 gm/dl (11.8-15.2) 09/08/20 03:25 Hct 39.8 % (35.5-45.6) 09/08/20 03:25 MCV 95 fl (84-94) H 09/08/20 03:25 MCH 32 pg (28-32) 09/08/20 03:25 MCHC 34 % (32-34) 09/08/20 03:25 RDW 13.0 % (13.2-15.2) L 09/08/20 03:25 Plt Count 393 K/mm3 (140-440) 09/08/20 03:25 Lymph % (Auto) 11.6 % (13.4-35.0) L 09/08/20 03:25 [place] % (Auto) 11.8 % (0.0-7.3) H 09/08/20 03:25 Eos % (Auto) 0.6 % (0.0-4.3) 09/08/20 03:25 Baso % (Auto) 0.4 % (0.0-1.8) 09/08/20 03:25 Lymph # (Auto) 1.3 K/mm3 (1.2-5.4) 09/08/20 03:25 [place] # (Auto) 1.3 K/mm3 (0.0-0.8) H 09/08/20 03:25 Eos # (Auto) 0.1 K/mm3 (0.0-0.4) 09/08/20 03:25 Baso # (Auto) 0.0 K/mm3 (0.0-0.1) 09/08/20 03:25 Seg Neutrophils % 75.6 % (40.0-70.0) H 09/08/20 03:25 Seg Neutrophils # 8.3 K/mm3 (1.8-7.7) H 09/08/20 03:25 Sodium 138 mmol/L (137-145) 09/09/20 06:50 Potassium 3.3 mmol/L (3.6-5.0) L 09/09/20 06:50 Chloride 105.0 mmol/L (98-107) 09/09/20 06:50 Carbon Dioxide 27 mmol/L (22-30) 09/09/20 06:50 Anion Gap 9 mmol/L 09/09/20 06:50 BUN 7 mg/dL (9-20) L 09/09/20 06:50 Creatinine 0.8 mg/dL (0.8-1.3) 09/09/20 06:50 Estimated GFR > 60 ml/min 09/09/20 06:50 BUN/Creatinine Ratio 9 % 09/09/20 06:50 Glucose 104 mg/dL (75-100) H 09/09/20 06:50 Calcium 8.0 mg/dL (8.4-10.2) L 09/09/20 06:50 Magnesium 1.70 mg/dL (1.7-2.3) 09/09/20 06:50 Total Bilirubin 0.50 mg/dL (0.1-1.2) 09/09/20 06:50 AST 30 units/L (5-40) 09/09/20 06:50 ALT 26 units/L (7-56) 09/09/20 06:50 Alkaline Phosphatase 53 units/L (35-129) 09/09/20 06:50 C-Reactive Protein 1.30 mg/dL (0.00-1.30) 09/04/20 05:44 Total Protein 5.9 g/dL (6.3-8.2) L 09/09/20 06:50 Albumin 3.3 g/dL (3.9-5) L 09/09/20 06:50 Albumin/Globulin Ratio 1.3 % 09/09/20 06:50 Lipase 17 units/L (13-60) 09/02/20 20:26 Urine Color Straw (Yellow) 09/03/20 02:27 Urine Turbidity Clear (Clear) 09/03/20 02:27 Urine pH 6.0 (5.0-7.0) 09/03/20 02:27 Ur Specific [place] 1.003 (1.003-1.030) 09/03/20 02:27 Urine Protein <15 mg/dl mg/dL (Negative) 09/03/20 02:27 Urine Glucose (UA) Neg mg/dL (Negative) 09/03/20 02:27 Urine Ketones Neg mg/dL (Negative) 09/03/20 02:27 Urine Blood Sm (Negative) 09/03/20 02:27 Urine Nitrite Neg (Negative) 09/03/20 02:27 Urine Bilirubin Neg (Negative) 09/03/20 02:27 Urine Urobilinogen < 2.0 mg/dL (<2.0) 09/03/20 02:27 Ur Leukocyte Esterase Neg (Negative) 09/03/20 02:27 Urine WBC (Auto) < 1.0 /HPF (0.0-6.0) 09/03/20 02:27 Urine RBC (Auto) < 1.0 /HPF (0.0-6.0) 09/03/20 02:27 C. difficile Tox (PCR) Negative (Negative) 09/06/20 10:45 Breaux/IV: Voiding Method Toilet IV Catheter Type [Left Forearm INT / Saline Lock ] IV Catheter Type [Right Peripheral IV Antecubital] Active Medications - Current Medications Current Medications: Generic Name Dose Route Start Last Admin Trade Name Freq PRN Reason Stop Dose Admin Acetaminophen 650 mg 09/03/20 15:42 09/03/20 16:04 Acetaminophen 325 Mg/10.15 Ml Oral Liqd Unit Dose FEEDTUBE 650 mg Q6H PRN Administration Pain, Mild (1-3) Cholestyramine Resin 4 gm 09/04/20 22:00 09/09/20 11:09 Cholestyramine (With Sugar) 4 Gm Packet PO 4 gm BID SHWETHA Administration Hyoscyamine 0.125 mg 09/06/20 16:00 09/09/20 11:09 Hyoscyamine Subl 0.125 Mg Tab SL 0.125 mg Q6H SHWETHA Administration Dextrose/Sodium Chloride 1,000 mls @ 75 mls/hr 09/03/20 03:00 09/09/20 02:01 D5ns IV 75 mls/hr DIRECT SHWETHA Administration Levofloxacin/Dextrose 500 mg in 100 mls @ 100 mls/hr 09/03/20 12:00 09/09/20 12:37 Levaquin 500mg/100ml IV 100 mls/hr Q24H SHWETHA Administration Protocol Metronidazole 500 mg in 100 mls @ 100 mls/hr 09/04/20 17:00 09/09/20 09:30 Flagyl 500 Mg/100 Ml IV 100 mls/hr Q8H SHWETHA Administration Protocol Morphine Sulfate 2 mg 09/05/20 11:00 09/05/20 21:29 Morphine 2 Mg/1 Ml Inj IV 2 mg Q4H PRN Administration Pain, Moderate (4-6) Ondansetron HCl 4 mg 09/03/20 02:11 09/04/20 06:30 Ondansetron 4 Mg/2 Ml Inj IV 4 mg Q6HR PRN Administration Indigestion Oxycodone/Acetaminophen 1 tab 09/05/20 11:00 Oxycodone /Acetaminophen 5-325mg Tab PO Q4H PRN Pain, Moderate (4-6) Pantoprazole Sodium 40 mg 09/05/20 10:00 09/09/20 10:10 Pantoprazole 40 Mg Inj IV 09/09/20 15:00 40 mg QDAY SHWETHA Administration Pantoprazole Sodium 40 mg 09/10/20 07:30 Pantoprazole 40 Mg Tab PO QDAC SHWETHA
[2020-09-09] MEDS: LOPERAMIDE 2 MG CAP PO PRN (14:04)
--- NOTE | 2020-09-09 15:31 | Progress Note ---
Assessment and Plan 1. Bloody diarrhea - x ~ 2 wks. Persistent. C diff negative. Etiology unclear. Stool WBC positive, c/w infectious or inflammatory process. Stool cultures negative. Given acuity, IBD less likely, but will give steroid trial. Pt usually has 2-3 BMs/d. Pt empirically on abx and cholestyramine, and Levsin. Looks remarkably good, with normal labs, given symptoms. Colonoscopy for tomorrow. - steroids empirically - continue abx - Levsin for cramps - colonoscopy tomorrow Subjective Date of service: 09/09/20 Interval history: Pt states he is the same as yesterday. Having intermittent loose BMs with streaks of blood. Abd cramping less as well. Alicja regular diet well. Objective - Constitutional Vitals: Vital Signs - 12hr 09/09/20 09/09/20 09/09/20 04:41 08:29 12:57 Temperature 98.4 F 98.4 F 97.8 F Pulse Rate 75 81 104 H Respiratory 18 17 17 Rate Blood Pressure 130/78 109/62 128/88 O2 Sat by Pulse 97 99 99 Oximetry General appearance: Present: no acute distress - EENT Eyes: PERRL, EOM intact ENT: hearing intact - Neck Neck: supple - Respiratory Respiratory effort: normal - Gastrointestinal General gastrointestinal: Present: soft, non-tender - Labs CBC & Chem 7: 09/08/20 03:25 09/09/20 06:50 Labs: Abnormal lab results 09/09/20 Range/Units 06:50 Potassium 3.3 L (3.6-5.0) mmol/L BUN 7 L (9-20) mg/dL Glucose 104 H (75-100) mg/dL Calcium 8.0 L (8.4-10.2) mg/dL Total Protein 5.9 L (6.3-8.2) g/dL Albumin 3.3 L (3.9-5) g/dL Medications & Allergies - Medications Allergies/Adverse Reactions: Allergies No Known Allergies Allergy (Verified 09/03/20 02:19) Active Medications: Generic Name Dose Route Start Last Admin Trade Name Freq PRN Reason Stop Dose Admin Acetaminophen 650 mg 09/03/20 15:42 09/03/20 16:04 Acetaminophen 325 Mg/10.15 Ml Oral Liqd Unit Dose FEEDTUBE 650 mg Q6H PRN Administration Pain, Mild (1-3) Cholestyramine Resin 4 gm 09/04/20 22:00 09/09/20 11:09 Cholestyramine (With Sugar) 4 Gm Packet PO 4 gm BID SHWETHA Administration Hyoscyamine 0.125 mg 09/06/20 16:00 09/09/20 11:09 Hyoscyamine Subl 0.125 Mg Tab SL 0.125 mg Q6H SHWETHA Administration Dextrose/Sodium Chloride 1,000 mls @ 75 mls/hr 09/03/20 03:00 09/09/20 02:01 D5ns IV 75 mls/hr DIRECT SHWETHA Administration Levofloxacin/Dextrose 500 mg in 100 mls @ 100 mls/hr 09/03/20 12:00 09/09/20 12:37 Levaquin 500mg/100ml IV 100 mls/hr Q24H SHWETHA Administration Protocol Metronidazole 500 mg in 100 mls @ 100 mls/hr 09/04/20 17:00 09/09/20 09:30 Flagyl 500 Mg/100 Ml IV 100 mls/hr Q8H SHWETHA Administration Protocol Loperamide HCl 2 mg 09/09/20 13:36 09/09/20 14:04 Loperamide 2 Mg Cap PO 2 mg Q2H PRN Administration Diarrhea Morphine Sulfate 2 mg 09/05/20 11:00 09/05/20 21:29 Morphine 2 Mg/1 Ml Inj IV 2 mg Q4H PRN Administration Pain, Moderate (4-6) Ondansetron HCl 4 mg 09/03/20 02:11 09/04/20 06:30 Ondansetron 4 Mg/2 Ml Inj IV 4 mg Q6HR PRN Administration Indigestion Oxycodone/Acetaminophen 1 tab 09/05/20 11:00 Oxycodone /Acetaminophen 5-325mg Tab PO Q4H PRN Pain, Moderate (4-6) Pantoprazole Sodium 40 mg 09/10/20 07:30 Pantoprazole 40 Mg Tab PO QDAC SHWETHA
[2020-09-09] MEDS ORDERED: POLYETHYLENE GLYCOL/ELECT SOLN 4000 ML PO ONE (16:00)
[2020-09-09] MEDS ORDERED: methylPREDNISolone Sod Suc 40 MG in SODIUM CHLORIDE 0.9% 100 ML IV SCH (16:00)
[2020-09-09] MEDS: methylPREDNISolone Sod Succinate 40 MG/1 ML INJ IV SCH (22:03)
[2020-09-10] MEDS: metroNIDAZOLE/NS 500 MG/100 ML 500 MG/100 ML BAG IV SCH ×3 (02:14→09:30)
[2020-09-10] MEDS: HYOSCYAMINE SUBL 0.125 MG TAB SL SCH ×2 (05:19→10:15)
[2020-09-10] MEDS: methylPREDNISolone Sod Succinate 40 MG/1 ML INJ IV SCH ×2 (05:36→13:08)
[2020-09-10] MEDS ORDERED: PANTOPRAZOLE 40 MG TAB PO SCH (07:30)
[2020-09-10] MEDS ORDERED: POTASSIUM CHLORIDE ER 20 MEQ TAB PO ONE (10:03)
[2020-09-10] MEDS ORDERED: POTASSIUM CHLORIDE 10 MEQ 10 MEQ/100 ML BAG IV SCH (11:00)
[2020-09-10 11:43] VITALS: BP 118/72
--- NOTE | 2020-09-10 12:23 | Event Note ---
Date: 09/10/20 Nursing notes reviewed. Pt refused colonoscopy, and wants another GI physician. As a result, will not see pt. He is hematologically, hemodynamically stable, with no evidence of volume or electrolyte abnormalities. He was empirically started on prednisone to see if it would help diarrhea. I believe it is safe to discharge pt to home on oral steroids and antidiarrheals and allow outpatient evaluation. Will sign off. Discussed with Dr. Wang.
--- NOTE | 2020-09-10 12:36 | Discharge Summary ---
Providers - Providers Date of Admission: 09/03/20 11:52 Date of discharge: 09/10/20 Attending physician: LELE WALL 09/03/20 01:48 Consult to Physician [CONS] Routine Comment: Consulting Provider: JN LEWIS Physician Instructions: Reason For Exam: prbpr 09/03/20 01:54 Consult to Physician [CONS] Routine Comment: Dr. Tran spoke with Dr. Beckham @ 0153 Consulting Provider: LARY BECKHAM Physician Instructions: Reason For Exam: colitis [facility] Condition: Critical Hospital course: 09/04. Await stool studies. Continue IV antibiotics. Await GI plans for possible EGD/colonoscopy. 09/05. CRP normal. Await stool studies. Continue clear liquid diet and advance as tolerated. Continue Levaquin and Flagyl. GI added Questran. GI with no plans of colonoscopy at this time and will follow up as an outpatient. 09/06. Stool WBC positive but culture negative. Continue Questran. Continue IV antibiotics of Flagyl and Levaquin. Consider repeat CT scan if no significant improvement in the next 1 to 2 days. GI following. Supportive care. 09/07. Stool WBC positive but culture negative. Continue Questran. Continue IV antibiotics of Flagyl and Levaquin. Consider repeat CT scan if no significant improvement in the next 1 to 2 days. GI following. Supportive care. Patient continues to complain of ongoing diarrhea and abdominal cramping. Check C. difficile toxin. GI to consider empiric trial of steroids and colonoscopy. Advised to be treated but is denying fevers. 09/08. Still has diarrhea but has less cramping today. Frequency of diarrhea is improving. Awaiting C diff. Hold colonoscopy as he is improving as per GI. Remains on antibiotics - flagyl and levaquin. 09/09. Still has diarrhea. C diff is negative. May need colonoscopy. Awaiting GI reeval. Disposition: TO HOME OR SELFCARE - Discharge Diagnoses (1) Colitis Status: Acute Core Measure Documentation - Palliative Care Palliative Care/ Comfort Measures: Not Applicable - Core Measures Any of the following diagnoses?: none Exam - Physical Exam Narrative exam: VITAL SIGNS: Reviewed. GENERAL: Awake HEAD: No signs of head trauma. EYES: Pupils are equal. Extraocular motions intact. MOUTH: Oropharynx is normal. NECK: No adenopathy, no JVD. CHEST: Chest with diminished breath sounds bilaterally. No wheezes, rales, or rhonchi. CARDIAC: normal S1 and S2, without murmurs, gallops, or rubs. ABDOMEN: Soft, non tender and non distended. No rebound or guarding, and no masses palpated. Bowel Sounds normal. MUSCULOSKELETAL: No edema NEUROLOGIC EXAM: Alert and oriented x3. No focal neurologic deficits SKIN: No obvious lesions With multiple - Constitutional Vitals: Temp Pulse Resp BP Pulse Ox 98.1 F 88 18 118/72 94 09/10/20 11:12 09/10/20 11:12 09/10/20 11:12 09/10/20 11:12 09/10/20 11:12 Plan Additional Instructions: Continue steroids and antidiarrheals. Follow up with gastroenterology in the office in 1-2 weeks Follow up with: [facility] MD JOHN [Primary Care Provider] - 7 Days KETAN HERNANDEZ MD [Staff Physician] - 7 Days Prescriptions: predniSONE [Deltasone] 20 mg PO QDAY #40 tab Loperamide [Imodium] 2 mg PO Q2H PRN #16 capsule PRN Reason: Diarrhea
[2020-09-10] MEDS: LOPERAMIDE 2 MG CAP PO PRN (12:39)
[2020-09-10] MEDS: CHOLESTYRAMINE (WITH SUGAR) 4 GM PACKET PO SCH (12:41)
== END 2020-09-10 14:15 | disposition home or self-care (01) | DRG 392 ==
LOC: ED 19:05 → 3B-SURG 09-03 01:52 → OBSVTOIN 09-03 11:52
PROVIDERS: ADMIT Internal Medicine Geriatric Medicine; ATTEND Internal Medicine
DX: K52.9 Noninfective gastroenteritis and colitis, unspecified (principal); K62.5 Hemorrhage of anus and rectum; F17.200 Nicotine dependence, unspecified, uncomplicated
CPT/HCPCS: 36415; 74177; 80048; 80053; 81001; 82270; 83690; 83735; 85007; 85025; 86140; 86671; 87045; 87493; 96361; 96374; G0378; C9113; J1956; J2270; J2405; J2543; J2920; J3480; J7030; J7042; Q9967